=== PATIENT | male | born 1950 | race Caucasian/White ===

== ENCOUNTER 2018-03-09 00:30 | Inpatient (IN) | payer BC ==
[2018-03-09] MEDS ORDERED: GLUCAGON 1 MG KIT IVPUSH ONE (00:57)
[2018-03-09 01:00] VITALS: BMI 25.7
--- NOTE | 2018-03-09 01:01 | PDOC ---
Attending Attestation - Resident Resident Name: Reyes Staples - ED Attending Attestation I have performed the following: I have examined & evaluated the patient, The case was reviewed & discussed with the resident, I agree w/resident's findings & plan, Exceptions are as noted - HPI HPI: 03/09/18 02:48 67y M hx of barrets esophagus c/b strictures presents with food impaction, pt with prior episodes of food impactioni n the past requiring endoscopy. pt notes the past month he has been having frequent bouts of food impaction after eating steak. pt notes some mild mid chest pain where he feels the food is stock. denies any fever/chils, sob, n/v, diaphoresis. on exam: general: no distress ENT: protecting oral secretions abd: soft nontender suspect food impaction, protecting secretions, no distress will give glucoagon will consult GI preop labs - Physicial Exam PE: 03/15/18 08:05 see above - Medical Decision Making 03/15/18 08:05 see above Heart Score/ECG Review - ECG Impressions Comment:: 03/09/18 05:09 Twelve-lead EKG was performed and reviewed by me. There is normal sinus rhythm with a normal rate. Rate of 67 LBBB
[2018-03-09] MEDS ORDERED: ONDANSETRON 4 MG/2 ML VIAL IVPUSH ONE (01:09)
--- NOTE | 2018-03-09 01:09 | PDOC ---
History of Present Illness - General Chief Complaint: Choking Sensation Stated Complaint: TANNER'S ESOPHAGUS Time Seen by Provider: 03/09/18 00:46 History Source: Patient Exam Limitations: No Limitations - History of Present Illness Initial Comments: 03/09/18 01:08 Patient is a 67M with history of barrets esophagus, hemochromatosis, fatty liver , parkinson's disease here today with chest pain after eating steak. Patient reports drooling having to use a spit cup. Endorses a pain in his upper chest. Denies difficulty breathing, fevers, chills, vomiting. Denies abdominal pain, dysuria. Past History - Past Medical History Allergies/Adverse Reactions: Allergies Allergy/AdvReac Type Severity Reaction Status Date / Time No Known Allergies Allergy Verified 03/09/18 00:57 Home Medications: Ambulatory Orders Omeprazole [Prilosec] 20 mg PO DAILY 08/14/15 Oxycodone HCl 10 mg PO PRN PRN 08/14/15 Rivastigmine Tartrate [Exelon (Nf) -] 1 cap PO BID 08/14/15 Ropinirole HCl [Requip -] 1 mg PO HS 08/14/15 Ropinirole HCl [Requip -] 1 mg PO HS tablet 12/07/15 Anemia: No Asthma: No Cancer: No Cardiac Disorders: No CVA: No COPD: No CHF: No Dementia: No Diabetes: No GI Disorders: Yes (BARRETTS SYNDROME) Disorders: No HTN: No Hypercholesterolemia: No Liver Disease: No Seizures: No Thyroid Disease: No - Surgical History Abdominal Surgery: Yes (UMBILICAL HERNIA REPAIR) Appendectomy: No Cardiac Surgery: No Cholecystectomy: No Lung Surgery: No Neurologic Surgery: No Orthopedic Surgery: No (KNEE ARHTROSCOPY-UNSURE WHICH) - Suicide/Smoking/Psychosocial Hx Smoking History: Never smoked Have you smoked in the past 12 months: No Number of Cigarettes Smoked Daily: 20 Information on smoking cessation initiated: No 'Breaking Loose' booklet given: 12/02/15 Hx Alcohol Use: No Drug/Substance Use Hx: No Substance Use Type: Alcohol Hx Substance Use Treatment: No Review of Systems - Review of Systems Comments:: 03/09/18 01:11 GENERAL/CONSTITUTIONAL: No fever or chills. No weakness. HEAD, EYES, EARS, NOSE AND THROAT: No change in vision. No sore throat. CARDIOVASCULAR: No chest pain or shortness of breath RESPIRATORY: No cough, wheezing, or hemoptysis. GASTROINTESTINAL: +nausea, no vomiting, diarrhea or constipation. GENITOURINARY: No dysuria, frequency, or change in urination. MUSCULOSKELETAL: No joint or muscle swelling or pain. No neck or back pain. SKIN: No rash NEUROLOGIC: No headache, vertigo, loss of consciousness, or change in strength/ sensation. ALLERGIC/IMMUNOLOGIC: No hives or skin allergy. *Physical Exam - Vital Signs Last Vital Signs Temp Pulse Resp BP Pulse Ox 97.6 F 93 H 18 170/88 94 L 03/09/18 00:57 03/09/18 00:57 03/09/18 00:57 03/09/18 00:57 03/09/18 00:57 - Physical Exam Comments: 03/09/18 01:14 GENERAL: Awake, alert, and fully oriented, spit cup in hand HEAD: No signs of trauma, normocephalic, atraumatic EYES: PERRLA, EOMI, sclera anicteric, conjunctiva clear ENT: Auricles normal inspection, hearing grossly normal, nares patent, oropharynx clear without exudates. Moist mucosa NECK: Normal ROM, supple, no lymphadenopathy, JVD, or masses LUNGS: No distress, speaks full sentences, clear to auscultation bilaterally HEART: Regular rate and rhythm, normal S1 and S2, no murmurs, rubs or gallops, peripheral pulses normal and equal bilaterally. ABDOMEN: Soft, nontender, normoactive bowel sounds. No guarding, no rebound. No masses EXTREMITIES: Normal inspection, Normal range of motion, no edema. No clubbing or cyanosis. NEUROLOGICAL: Cranial nerves II through XII grossly intact. Normal speech, normal gait, no focal sensorimotor deficits SKIN: Warm, Dry, normal turgor, no rashes or lesions noted. Moderate Sedation - Procedure Monitoring Vital Signs: Procedure Monitoring Vital Signs Temperature 97.6 F 03/09/18 00:57 Pulse Rate 93 H 03/09/18 00:57 Respiratory Rate 18 03/09/18 00:57 Blood Pressure 170/88 03/09/18 00:57 O2 Sat by Pulse Oximetry (%) 94 L 03/09/18 00:57 ED Treatment Course - LABORATORY CBC & Chemistry Diagram: 03/09/18 01:00 03/09/18 01:00 - RADIOLOGY Radiology Studies Ordered: Category Date Time Status CHEST X-RAY PORTABLE* [RAD] Stat Radiology 03/09/18 00:57 Ordered Medical Decision Making - Medical Decision Making 03/09/18 01:15 Patient is 67M here today with food bolus. Vitals normal and stable. Protecting airway. Pre-op labs drawn. Given 1mg of glucagon. Patient's local GI is [facility] , paged. 03/09/18 02:41 CBC, CMP reassuring. Glucagon not effective. GI paged 2 time. Patient dry heaving. Complaining of "heartburn". 03/09/18 03:59 D/w Dr Buckner, will see in morning. 03/09/18 04:16 EKG shows LBBB, NSR. Similar to prior EKG. Sgarbossa neg. *DC/Admit/Observation/Transfer Diagnosis at time of Disposition: Food impaction of esophagus - Discharge Dispostion Condition at time of disposition: Stable Decision to Admit order: Yes - Referrals - Patient Instructions - Post Discharge Activity
[2018-03-09] MEDS ORDERED: GlUCAGON HUMAN RECOMBINANT 1 MG/VIAL ONE (01:10)
[2018-03-09] MEDS ORDERED: ONDANSETRON 4 MG/2 ML VIAL ONE (01:11)
[2018-03-09 01:18] LABS: BASO % 1.2 % (0-2.0); EOS % 1.6 % (0-4.5); HEMATOCRIT 45.4 % (35.4-49); LYMPH % 21.5 % (8-40); MCH 34.1 pg (25.7-33.7); MCHC 35.2 g/dl (32.0-35.9); MEAN CELL VOLUME 96.9 fl (80-96); MONO % 11.2 % (3.8-10.2); NEUT % 64.5 % (42.8-82.8); PLATELET COUNT 274 K/MM3 (134-434); RBC 4.68 M/mm3 (4.00-5.60); RDW 13.2 % (11.9-15.9); WHITE BLOOD COUNT 6.5 K/mm3 (4.0-10.0)
[2018-03-09 01:33] LABS: INR 1.13 (0.83-1.09); PROTHROMBIN TIME (PATIENT) 13.3 SEC (9.7-13.0)
[2018-03-09 02:03] LABS: ALBUMIN 3.8 g/dl (3.4-5.0); ALK PHOS 124 U/L (45-117); ANION GAP 10 MMOL/L (8-16); BILIRUBIN,TOTAL 1.1 mg/dL (0.2-1); BLOOD UREA NITROGEN 8 mg/dL (7-18); CALCIUM 8.9 mg/dL (8.5-10.1); CHLORIDE 101 mmol/L (98-107); CO2 29 mmol/L (21-32); CREATININE 0.6 mg/dL (0.55-1.3); GLUCOSE,RANDOM 91 mg/dL (74-106); POTASSIUM 4.2 mmol/L (3.5-5.1); SGOT/AST 70 U/L (15-37); SGPT/ALT 46 U/L (13-61); SODIUM 140 mmol/L (136-145); TOT PROT 8.1 g/dl (6.4-8.2)
[2018-03-09] MEDS ORDERED: FAMOTIDINE 20 MG/50 ML IVPB 20 MG/50 ML MG IVPB ONE ×2 (02:44→02:57)
--- NOTE | 2018-03-09 04:33 | HP ---
Admitting History and Physical - Primary Care Physician PCP: Nikolas Donald - Admission Chief Complaint: Difficulty Swallowing, Burning Chest Pain History of Present Illness: This is a 67 y/o man with a PMHx of Barretts Espohagus, Hemochromotosis, Fatty Liver, Parkinson's Disease. Who presents to the ED with burning chest pain and difficulty swallowing after eating steak. Patient reports eating steak without chewing. He reports attempting to drink liquids and not being able to. He states " It feels like something is stuck in my chest. Patient denies SOB, palpitations , AP, constipation, diarrhea, dysuria. History Source: Patient Limitations to Obtaining History: No Limitations - Past Medical History Pulmonary: Yes: COPD. No: O2 Dependent Gastrointestinal: Yes: GERD, Other (barretts). No: Ascites, Cancer Hepatobiliary: Yes: Cirrhosis Heme/Onc: Yes: Hemochromatosis. No: Anemia Psych: Yes: Addictions (20 mg of oxycodone daily for back pain) Musculoskeletal: Yes: Chronic low back pain - Smoking History Smoking history: Never smoked Have you smoked in the past 12 months: No Aproximately how many cigarettes per day: 20 - Alcohol/Substance Use Hx Alcohol Use: No - Social History History of Recent Travel: No Home Medications - Allergies Allergies/Adverse Reactions: Allergies Allergy/AdvReac Type Severity Reaction Status Date / Time No Known Allergies Allergy Verified 03/09/18 00:57 - Home Medications Home Medications: Ambulatory Orders Omeprazole [Prilosec] 20 mg PO DAILY 08/14/15 Oxycodone HCl 10 mg PO PRN PRN 08/14/15 Rivastigmine Tartrate [Exelon (Nf) -] 1 cap PO BID 08/14/15 Ropinirole HCl [Requip -] 1 mg PO HS 08/14/15 Family Disease History - Family Disease History Family History: Unable to Obtain Review of Systems - Review of Systems Eyes: reports: No Symptoms HENT: reports: Other (excessive drooling) Cardiovascular: reports: No Symptoms Respiratory: reports: No Symptoms Genitourinary: reports: No Symptoms Breasts: reports: No Symptoms Reported Musculoskeletal: reports: No Symptoms Integumentary: reports: No Symptoms Neurological: reports: No Symptoms Endocrine: reports: No Symptoms Hematology/Lymphatic: reports: No Symptoms Psychiatric: reports: No Symptoms Physical Examination Vital Signs: Vital Signs Temperature 97.6 F 03/09/18 00:57 Pulse Rate 93 H 03/09/18 00:57 Respiratory Rate 18 03/09/18 00:57 Blood Pressure 170/88 03/09/18 00:57 O2 Sat by Pulse Oximetry (%) 94 L 03/09/18 00:57 Constitutional: Yes: Well Nourished, Mild Distress, Obese Eyes: Yes: WNL, Conjunctiva Clear, EOM Intact, PERRL HENT: Yes: WNL, Atraumatic, Normocephalic Neck: Yes: WNL, Supple, Trachea Midline. No: Tenderness Cardiovascular: Yes: WNL, Regular Rate and Rhythm, S1, S2 Respiratory: Yes: Cough, Rhonchi Gastrointestinal: Yes: WNL, Normal Bowel Sounds, Soft, Abdomen, Obese Renal/: Yes: WNL Breast(s): Yes: WNL Musculoskeletal: Yes: WNL Extremities: Yes: WNL Edema: Yes Peripheral Pulses WNL: Yes Integumentary: Yes: WNL Neurological: Yes: WNL, Alert, Oriented ...Motor Strength: WNL Psychiatric: Yes: WNL, Alert, Oriented Labs: CBC, BMP 03/09/18 01:00 03/09/18 01:00 Imaging - Results Chest X-ray: Image Reviewed X-ray: Pending EKG: Image Reviewed Problem List - Problems (1) Food impaction of esophagus Assessment/Plan: Likely secondary to eating steak Glucagon given in ED- no relief Soft tissue Neck- pending Appreciate GI consult- aware will see in am HOB 90 degrees NPO IVF Aspiration Precautions Monitor vitals Code(s): T18.128A - FOOD IN ESOPHAGUS CAUSING OTHER INJURY, INITIAL ENCOUNTER (2) Tanner esophagus Assessment/Plan: Will continue to monitor and treat with interventions Aspiration Precautions Code(s): K22.70 - TANNER'S ESOPHAGUS WITHOUT DYSPLASIA (3) Chest pain due to GERD Assessment/Plan: Likely secondary to eating steak Trop I neg Serial Enzymes Consider Cardiology consult if condition worsens EKG- LBBB, no change from prior study PPI Monitor vitals Code(s): R07.9 - CHEST PAIN, UNSPECIFIED; K21.9 - GASTRO-ESOPHAGEAL REFLUX DISEASE WITHOUT ESOPHAGITIS (4) COPD (chronic obstructive pulmonary disease) Assessment/Plan: Stable No acute flare Continue home meds Code(s): J44.9 - CHRONIC OBSTRUCTIVE PULMONARY DISEASE, UNSPECIFIED (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 Admitted for Food Impaction of the Esophagus, Chest Pain for further evaluation of their emergent condition Plan: See Problem List FEN- D51/2NS@75ml/hr, Replete lytes prn, NPO DVT ppx- OOB, SCDs, Heparin SQ Code Status: Full Code Dispo: Requires Inpatient Care Visit type - Emergency Visit Emergency Visit: Yes ED Registration Date: 03/09/18 Care time: The patient presented to the Emergency Department on the above date and was hospitalized for further evaluation of their emergent condition. - New Patient This patient is new to me today: Yes Date on this admission: 03/09/18 - Critical Care Critical Care patient: No
[2018-03-09] MEDS ORDERED: DEXTROSE 5%-0.45% SALINE 1,000 ML IV SCH (04:45)
--- NOTE | 2018-03-09 09:41 | CON.GI ---
Consult Consult Specialty:: GI Referred by:: Dr. Lau Reason for Consultation:: Esophageal Food Impaction - History of Present Illness Chief Complaint: I ate steak and it got stuck History of Present Illness: 67M admitted to [facility] for evaluation of dysphagia. He ate steak last night and felt pain, was unable to maintain his secretions. He took his own medications this morning per his nurse. He states that they went down but it still hurts. He has a history of jackson's esophagus. he is a poor historian so i called his . He is followed by Dr. Angel Cornejo at [facility]. By description he has undergone Barrx ablation of batrrett's, has needed esophageal dilations in the past and has had food impactions in the past. His last treatment was 2 years ago per his . Mr. Bernardo explained that it was 7 months ago. He driinks upwards of 10 beers per day and vodka as well. he has a history of hemochromatosis and fatty liver. He does not recall ever having undergone banding or varcies nor does his . 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 No: O2 Dependent Gastrointestinal: Yes: GERD, Other (jackson's esophagus). 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 Place of : [facility] History of Recent Travel: No Home Medications - Allergies Allergies/Adverse Reactions: Allergies Allergy/AdvReac Type Severity Reaction Status Date / Time No Known Allergies Allergy Verified 03/09/18 00:57 - Home Medications Home Medications: Ambulatory Orders Omeprazole [Prilosec] 20 mg PO DAILY 08/14/15 Oxycodone HCl 10 mg PO PRN PRN 08/14/15 Rivastigmine Tartrate [Exelon (Nf) -] 1 cap PO BID 08/14/15 Ropinirole HCl [Requip -] 1 mg PO HS 08/14/15 Family Disease History - Family Disease History Family Disease History: Other: Father (: Lung cancer) Review of Systems - Review of Systems Constitutional: denies: Chills Cardiovascular: denies: Chest Pain Respiratory: denies: SOB Gastrointestinal: reports: Dysphagia. denies: Abdominal Pain Physical Exam-GI Vital Signs: Vital Signs Temperature 97.6 F 03/09/18 10:00 Pulse Rate 82 03/09/18 10:00 Respiratory Rate 18 03/09/18 10:00 Blood Pressure 175/94 03/09/18 10:00 O2 Sat by Pulse Oximetry (%) 95 on RA 03/09/18 10:00 Constitutional: Yes: Calm Eyes: No: Sclera Icterus Labs: CBC, BMP 03/09/18 01:00 03/09/18 01:00 INR, PTT INR 1.13 (0.83-1.09) H 03/09/18 01:00 Problem List - Problems (1) Food impaction of esophagus Assessment/Plan: Recurrent by description Discussed upper endoscopy for further evaluation with Mr. Bernardo +/- banding of varices, +/- dilation. We discussed that he will likely require intubation for the procedure. We discussed potential risks of the procedure like but not limited to bleeding, perforation requiring surgery to repainr, infection and sedation medication effects all of which could be potentially life threatening. I explained this to his via telephone. He has agreed to the procedure. Type and cross NPO IV hydration BP management per primary team Will need f/u with primary muffler hand Dr. Tye Cornejo for follow-up of jackson's, fatty liver upon discharge Discussed the need for alcohol abstinence. Code(s): T18.128A - FOOD IN ESOPHAGUS CAUSING OTHER INJURY, INITIAL ENCOUNTER
--- NOTE | 2018-03-09 11:54 | EKG ---
Test Reason : Blood Pressure : / mmHG Vent. Rate : 067 BPM Atrial Rate : 067 BPM P-R Int : 142 ms QRS Dur : 142 ms QT Int : 466 ms P-R-T Axes : 048 -20 057 degrees QTc Int : 492 ms NORMAL SINUS RHYTHM WITH SINUS ARRHYTHMIA LEFT BUNDLE BRANCH BLOCK ABNORMAL ECG WHEN COMPARED WITH ECG OF 02-DEC-2015 12:34, PREMATURE ATRIAL COMPLEXES ARE NO LONGER PRESENT T WAVE INVERSION NO LONGER EVIDENT IN LATERAL LEADS Confirmed by CHRISTI QUIROZ, FRANC ([id number]) on 03/09/2018 11:53:55 AM Referred By: Confirmed By:FRANC BARRAZA MD
--- NOTE | 2018-03-09 12:07 | PN ---
Progress Note (short form) - Note Progress Note: EGD complete. Procedure report added to physical chart and to also be scanned into [facility]. Problem List - Problems (1) Food impaction of esophagus Code(s): T18.128A - FOOD IN ESOPHAGUS CAUSING OTHER INJURY, INITIAL ENCOUNTER
--- NOTE | 2018-03-09 17:22 | PN ---
Progress Note, Physician Chief Complaint: s/p EGD Dysphagia History of Present Illness: Previous notes and events reviewed awake and alert NAD no c/o chest pain or SOB - Current Medication List Current Medications: Active Medications Dextrose/Sodium Chloride (D5-1/2ns -) 1,000 mls @ 75 mls/hr IV ASDIR [facility] Last Admin: 03/09/18 04:53 Dose: 75 mls/hr Pantoprazole Sodium (Protonix -) 40 mg PO DAILY [facility] - Objective Vital Signs: Vital Signs Temperature 97.8 F 03/09/18 16:14 Pulse Rate 69 03/09/18 16:14 Respiratory Rate 18 03/09/18 16:14 Blood Pressure 160/94 03/09/18 16:14 O2 Sat by Pulse Oximetry (%) 98 03/09/18 15:42 Constitutional: Yes: Well Nourished, No Distress, Calm Eyes: Yes: Conjunctiva Clear Neck: Yes: Supple Cardiovascular: Yes: Regular Rate and Rhythm Respiratory: Yes: Regular, CTA Bilaterally Gastrointestinal: Yes: Normal Bowel Sounds, Soft Musculoskeletal: Yes: WNL Extremities: Yes: WNL Edema: No Integumentary: Yes: WNL Neurological: Yes: Alert, Oriented Psychiatric: Yes: Alert, Oriented Labs: CBC, BMP 03/09/18 01:00 03/09/18 01:00 INR, PTT INR 1.13 (0.83-1.09) H 03/09/18 01:00 <Zohra Pérez - Last Filed: 03/09/18 17:26> - Current Medication List Current Medications: Active Medications Ketorolac Tromethamine (Toradol Injection -) 30 mg IVPUSH Q6H PRN PRN Reason: PAIN LEVEL 1-5 Stop: 03/14/18 17:59 Last Admin: 03/10/18 05:44 Dose: 30 mg Non-Formulary Medication (Patient's Own Med) 1 each PO BID [facility] Pantoprazole Sodium (Protonix -) 40 mg PO DAILY [facility] Last Admin: 03/10/18 08:28 Dose: Not Given Ropinirole HCl (Requip -) 1 mg PO HS [facility] Last Admin: 03/09/18 22:34 Dose: 1 mg - Objective Vital Signs: Vital Signs Temperature 98.3 F 03/10/18 05:55 Pulse Rate 60 03/10/18 05:55 Respiratory Rate 20 03/10/18 05:55 Blood Pressure 157/93 03/10/18 05:55 O2 Sat by Pulse Oximetry (%) 98 03/09/18 21:00 Labs: INR, PTT INR 1.13 (0.83-1.09) H 03/09/18 01:00 <Stephani Lau - Last Filed: 03/10/18 08:39> Problem List - Problems (1) Tanner esophagus Code(s): K22.70 - TANNER'S ESOPHAGUS WITHOUT DYSPLASIA (2) Chest pain due to GERD Code(s): R07.9 - CHEST PAIN, UNSPECIFIED; K21.9 - GASTRO-ESOPHAGEAL REFLUX DISEASE WITHOUT ESOPHAGITIS (3) Food impaction of esophagus Code(s): T18.128A - FOOD IN ESOPHAGUS CAUSING OTHER INJURY, INITIAL ENCOUNTER (4) COPD (chronic obstructive pulmonary disease) Code(s): J44.9 - CHRONIC OBSTRUCTIVE PULMONARY DISEASE, UNSPECIFIED (5) Parkinson disease Code(s): G20 - PARKINSON'S DISEASE <Zohra Pérez - Last Filed: 03/09/18 17:26> Assessment/Plan -GI on board, reccomendation appreciated -Full liquid diet -cont with IVF for hydration -pantoprazole daily -keep SpO2 >90% -dvt ppx-SCD both legs -I&O -cont with exelon and requip <Zohra Pérez - Last Filed: 03/09/18 17:26> PATIENT SEEN AND EXAMINED I AGREE WITH ABOVE NOTE <Stephani Lau - Last Filed: 03/10/18 08:39>
[2018-03-09] MEDS: KETOROLAC TROMETHAMINE 30 MG/1 ML VIAL IVPUSH PRN (19:47)
[2018-03-09] MEDS ORDERED: rOPINIRole HCL 1 MG TABLET (FP) PO SCH (22:00)
[2018-03-10] MEDS: KETOROLAC TROMETHAMINE 30 MG/1 ML VIAL IVPUSH PRN (05:44)
[2018-03-10 05:57] VITALS: TEMP 98.3
[2018-03-10] MEDS: PANTOPRAZOLE 40 MG TABLET (FP) PO SCH ×2 (08:28→09:29)
[2018-03-10 08:36] LABS: HEMATOCRIT 43.2 % (35.4-49); HEMOGLOBIN 15.3 GM/dL (11.7-16.9); LYMPH % 23.2 % (8-40); MCH 34.6 pg (25.7-33.7); MCHC 35.4 g/dl (32.0-35.9); MEAN CELL VOLUME 97.7 fl (80-96); MEAN PLT VOLUME 7.6 fl (7.5-11.1); MONO % 8.2 % (3.8-10.2); NEUT % 67.5 % (42.8-82.8); PLATELET COUNT 201 K/MM3 (134-434); RBC 4.42 M/mm3 (4.00-5.60); WHITE BLOOD COUNT 6.6 K/mm3 (4.0-10.0)
[2018-03-10 08:37] LABS: BASO % 0.5 % (0-2.0); EOS % 0.6 % (0-4.5)
[2018-03-10 09:20] LABS: ANION GAP 7 MMOL/L (8-16); BLOOD UREA NITROGEN 16 mg/dL (7-18); CALCIUM 9.1 mg/dL (8.5-10.1); CHLORIDE 98 mmol/L (98-107); CO2 28 mmol/L (21-32); CREATININE 0.7 mg/dL (0.55-1.3); GLUCOSE,RANDOM 153 mg/dL (74-106); POTASSIUM 3.8 mmol/L (3.5-5.1); SODIUM 134 mmol/L (136-145)
--- NOTE | 2018-03-10 11:15 | PN ---
GI Progress Note Subjective: No acute events Tolerating full liquids states feeling well - Objective Vital Signs: Vital Signs Temperature 98.3 F 03/10/18 05:55 Pulse Rate 60 03/10/18 05:55 Respiratory Rate 20 03/10/18 05:55 Blood Pressure 157/93 03/10/18 05:55 O2 Sat by Pulse Oximetry (%) 98 03/09/18 21:00 Constitutional: Calm Eyes: No: Sclera Icterus Cardiovascular: Yes: Regular Rate and Rhythm Respiratory: Yes: CTA Bilaterally Gastrointestinal Inspection: No: Distention ...Auscultate: Yes: Normoactive Bowel Sounds ...Palpate: No: Tenderness Edema: No (No LE edema) Neurological: Yes: Alert Labs: CBC, BMP 03/10/18 07:45 03/10/18 07:45 INR, PTT INR 1.13 (0.83-1.09) H 03/09/18 01:00 Problem List - Problems (1) Food impaction of esophagus Assessment/Plan: S/P meat disimpaction Advise: Protonix 40mg once daily Chopped dysphagia diet Complete alcohol abstinence. Will likely need to be in a program. Discussed with patient Avoidance of bulk meats and breads with slow, well chewed meals Follow-up with Dr. Cornejo as outpatient for further evaluation of Garza's. I spoke with Dr. Cornejo last night. he stated that he would be reaching out to Mr. Bernardo regarding follow-up and I advised the patient to make appointment as well. Code(s): T18.128A - FOOD IN ESOPHAGUS CAUSING OTHER INJURY, INITIAL ENCOUNTER
[2018-03-10 11:59] VITALS: BP 157/89; PULSE 91
--- NOTE | 2018-03-10 12:44 | DS ---
Physical Examination Vital Signs: Vital Signs Temperature 98.3 F 03/10/18 05:55 Pulse Rate 91 H 03/10/18 11:00 Respiratory Rate 20 03/10/18 11:00 Blood Pressure 157/89 03/10/18 11:00 O2 Sat by Pulse Oximetry (%) 98 03/10/18 09:00 Labs: CBC, BMP 03/10/18 07:45 03/10/18 07:45 Discharge Summary Reason For Visit: FOOD IMPACTION OF ESOPHAGUS Current Active Problems Garza esophagus (Acute) Chest pain due to GERD (Acute) Food impaction of esophagus (Acute) Condition: Stable - Instructions Referrals: Nikolas Donald MD [Primary Care Provider] - 2 Weeks Disposition: HOME - Home Medications Comprehensive Discharge Medication List: Ambulatory Orders Oxycodone HCl 10 mg PO PRN PRN 08/14/15 Rivastigmine Tartrate [Exelon (Nf) -] 1 cap PO BID 08/14/15 Ropinirole HCl [Requip -] 1 mg PO HS 08/14/15 Pantoprazole Sodium [Protonix -] 40 mg PO DAILY #30 tablet.ec 03/10/18 Ropinirole HCl [Requip -] 1 mg PO HS tablet 03/10/18
== END 2018-03-10 13:32 | disposition home or self-care (01) | DRG 395 ==
LOC: JER 00:30 → JERBED 04:02 → J6S 15:50
PROVIDERS: ADMIT Internal Medicine; ATTEND Family Medicine
PROC: 0DC58ZZ Extirpation of Matter from Esophagus, Via Natural or Artificial Opening Endoscopic (ICD-10-PCS; principal; 2018-03-09 11:00)
DX: T18.128A Food in esophagus causing other injury, initial encounter (principal); X58.XXXA Exposure to other specified factors, initial encounter; Y93.9 Activity, unspecified; Y92.89 Other specified places as the place of occurrence of the external cause; Y99.9 Unspecified external cause status; R13.10 Dysphagia, unspecified; K21.9 Gastro-esophageal reflux disease without esophagitis; K76.0 Fatty (change of) liver, not elsewhere classified; G20 Parkinson's disease; K22.70 Barrett's esophagus without dysplasia; R07.9 Chest pain, unspecified; F17.210 Nicotine dependence, cigarettes, uncomplicated
CPT/HCPCS: 36415; 70360-TC-FY; 71045-TC-FY; 80048; 80053; 82550; 83735; 84484; 85025; 85610; 86850; 86900; 86901; 93005; 93010; 99285-25

== ENCOUNTER 2018-05-23 07:35 | Day surgery (SDC) | payer BC, OTHER ==
[2018-05-21 14:21] VITALS: BMI 26.0
[2018-05-23] MEDS: PHENYLEPHRINE 2.5% OPHTH SOLN 15 ML BOTTLE ONE ×3 (08:05→08:15)
[2018-05-23] MEDS: TROPICAMIDE 1% OPHTH SOLN 15 ML BOTTLE ONE ×3 (08:05→08:15)
[2018-05-23] MEDS: CYCLOPENTOLATE 2% OPHTH SOLN 2 ML BOTTLE ONE ×3 (08:05→08:15)
[2018-05-23] MEDS: CIPROFLOXACIN 0.3% EYE DROPS 5 ML BOTTLE ONE ×3 (08:05→08:15)
[2018-05-23] MEDS ORDERED: LIDOCAINE 1% P/F 10 MG/ML VIAL ONE (09:05)
[2018-05-23] MEDS ORDERED: BSS (NA/CA/MG/K) BALANCED SALT SOLUTION OPHTH SOLN 15 ML BOTTLE ONE (09:05)
[2018-05-23] MEDS ORDERED: CARBACHOL 0.01% INTRA-OCULAR 1.5 ML VIAL ONE (09:05)
[2018-05-23] MEDS ORDERED: MIDAZOLAM HCL 2 MG/2 ML SINGLE DOSE VIAL ONE (09:06)
[2018-05-23] MEDS ORDERED: ACETAMINOPHEN 325 MG TABLET (FP) PO PRN (09:43)
[2018-05-23] MEDS ORDERED: ONDANSETRON 4 MG/2 ML VIAL IVPUSH PRN (09:43)
[2018-05-23 09:45] VITALS: TEMP 97.4
[2018-05-23] MEDS ORDERED: LACTATED RINGERS SOLUTION 1,000 ML IV SCH (09:45)
--- NOTE | 2018-05-23 09:49 | OP ---
DATE OF OPERATION: 05/23/2018 OPERATIVE PROCEDURE: Lens Phacoemulsification with Posterior Chamber Intraocular Lens Placement Right Eye PREOPERATIVE DIAGNOSIS: Visually Significant Cataract of Right Eye POSTOPERATIVE DIAGNOSIS: Visually Significant Cataract of Right Eye SURGEON: Ye Gil M.D. ANESTHESIA: MAC PROCEDURE: The patient was brought to the operating room and placed under monitored anesthesia care by Anesthesia. A drop of Tetracaine was then placed over the right eye. The patient was then prepped and draped in the usual sterile manner. A speculum was then placed over the right eye. The eye was then well irrigated with copious amounts of BSS (balanced salt solution). The operating microscope was then moved into position. A paracentesis was performed using a 15 degree blade. At this point 0.5 mL of 1% preservative-free lidocaine was injected into the anterior chamber. Amvisc plus was then injected into the anterior chamber. A clear corneal incision was then formed using a 2.2 mm keratome. A capsulorrhexis was then performed in a continuous circular fashion beginning with a cystotome, completed with an Utratas forceps. Hydrodissection was then performed using BSS on a cannula. The phaco probe was then introduced through the corneal wound and the cataract was removed using the phaco chop technique. Approximately 3 seconds of absolute phaco time was used. The remaining cortex was then removed using irrigation and aspiration with an I/A probe. The capsule was then filled with regular Amvisc and the capsule was noted to be intact. A previously selected foldable posterior chamber intraocular lens was then injected into the capsule through the corneal wound using a lens injector. It was then dialed into position using a Sinskey hook. The Amvisc was then removed using irrigation and aspiration. Miostat was then injected through the paracentesis to constrict the pupil. The paracentesis and corneal wound were then hydrated and noted to be water tight. A drop of Maxitrol was then placed over the eye. The speculum was removed and clear shield was taped over the eye. The patient tolerated the procedure well and there were no surgical complications. The patient was asked to follow up in my office the next day. YE GIL M.D. LISETH/[id number]
[2018-05-23 11:43] VITALS: BP 120/58; PULSE 72
== END 2018-05-23 10:15 | disposition home or self-care (01) ==
LOC: FASU 07:35
PROVIDERS: ATTEND Ophthalmology
PROC: 08RJ3JZ Replacement of Right Lens with Synthetic Substitute, Percutaneous Approach (ICD-10-PCS; principal; 2018-05-23 09:21)
DX: H26.8 Other specified cataract (principal)

== ENCOUNTER 2018-06-12 05:52 | Inpatient (IN) | payer BC, OTHER ==
[2018-05-28 12:02] VITALS: BMI 28.7
[2018-06-12] MEDS ORDERED: CEFAZOLIN 2 GM/D5W 2 GM/50 ML ML IVPB ONE (06:20)
[2018-06-12] MEDS ORDERED: oxyCODONE HCL 10 MG SUSTAINED ACTING TABLET PO ONE (06:20)
[2018-06-12] MEDS ORDERED: GABAPENTIN 300 MG CAPSULE (FP) PO ONE (06:20)
[2018-06-12] MEDS ORDERED: TRANEXAMIC ACID 1000 MG/10 ML VIAL IVPUSH ONE (06:20)
[2018-06-12] MEDS ORDERED: CELECOXIB 200 MG CAPSULE PO ONE (06:20)
[2018-06-12] MEDS ORDERED: MIDAZOLAM HCL 2 MG/2 ML SINGLE DOSE VIAL ONE (07:04)
[2018-06-12] MEDS ORDERED: BUPIVACAINE LIPOSOME/PF (EXPAREL) 266 MG/20 ML VIAL ONE (07:04)
[2018-06-12] MEDS ORDERED: SODIUM CHLORIDE 0.9% P/F 10 ML VIAL IJ ONE (07:05)
[2018-06-12] MEDS ORDERED: ceFAZolin SODIUM 1 GM VIAL ONE ×2 (07:22→08:14)
[2018-06-12] MEDS ORDERED: VANCOMYCIN 1,000 MG VIAL (RESTRICTED TO ID ONLY) ONE (07:22)
[2018-06-12] MEDS ORDERED: ONDANSETRON 4 MG/2 ML VIAL IVPUSH PRN (07:51)
[2018-06-12] MEDS ORDERED: MAG HYDROX/AL HYDROX/SIMETH 30 ML UNIT-DOSE CUP PO PRN (07:51)
[2018-06-12] MEDS ORDERED: MAGNESIUM HYDROX 2400MG/30ML ORAL SUSPENSION 30 ML CUP PO PRN (07:51)
--- NOTE | 2018-06-12 07:53 | HP ---
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 No: O2 Dependent Gastrointestinal: Yes: GERD, Other (jackson's esophagus). No: Ascites, Cancer Hepatobiliary: Yes: Cirrhosis Heme/Onc: Yes: Hemochromatosis Musculoskeletal: Yes: Chronic low back pain - Current Medications Current Medications: Home Medications Medication Instructions Recorded Oxycodone HCl 10 mg PO PRN PRN 08/14/15 Rivastigmine Tartrate [Exelon (Nf) 1 cap PO BID 08/14/15 -] Omeprazole 20 mg PO DAILY 05/21/18 Ropinirole HCl [Requip -] 1 mg PO BID 05/28/18 Satellite Physical Exam - Physical Examination Vital Signs: Vital Signs Period Temp Pulse Resp BP Sys/Cameron Pulse Ox Last 24 Hr 98.8 F 72 18 130/68 General Appearance: Well Nourished, Well Developed, Alert & Oriented x3 ENT: Clear Lung: Normal air movement Heart: Regular rate & rhythm Extremities: Other (right knee- + swellng, + ttp, decr rom, nvi xrays show grade 4 tricompartmental djd) Neurological: Intact, Alert, Oriented Satellite Impression/Plan - Impression/Plan Impression: right knee djd Operative Procedure: right beata tkr Date to be Performed: 06/12/18
[2018-06-12] MEDS ORDERED: GABAPENTIN 300 MG CAPSULE (FP) ONE (07:57)
[2018-06-12] MEDS ORDERED: oxyCODONE HCL 10 MG SUSTAINED ACTING TABLET ONE (07:57)
[2018-06-12] MEDS ORDERED: CELECOXIB 200 MG CAPSULE ONE (07:57)
[2018-06-12] MEDS ORDERED: LACTATED RINGERS SOLUTION 1,000 ML IV SCH (08:00)
[2018-06-12] MEDS ORDERED: SUCCINYLCHOLINE CHLORIDE 200 MG/10 ML VIAL ONE (08:03)
[2018-06-12] MEDS ORDERED: TRANEXAMIC ACID 1000 MG/10 ML VIAL ONE (08:14)
[2018-06-12] MEDS ORDERED: PROPOFOL 20 ML ONE (08:16)
--- NOTE | 2018-06-12 09:46 | OP ---
Operative Note - Note: Operative Date: 06/12/18 (sim) Pre-Operative Diagnosis: right knee djd Operation: right beata tkr Post-Operative Diagnosis: Same as Pre-op Surgeon: Trev Back Communications Professor: Nick Dunlap Anesthesiologist/TIPPLE TENDER: Shan Barahona Anesthesia: Spinal, Local Specimens Removed: bone fragments Estimated Blood Loss (mls): 200 Operative Report Dictated: Yes
[2018-06-12] MEDS ORDERED: RIVASTIGMINE TARTRATE 1.5 MG CAPSULE PO SCH (10:00)
[2018-06-12] MEDS ORDERED: SENNOSIDES/DOCUSATE COMBO (SENNA PLUS) TABLET (UD) PO SCH (10:00)
--- NOTE | 2018-06-12 10:20 | SPEC ---
DATE OF OPERATION: DATE OF DICTATION: 06/12/2018 ADDENDUM SURGEON: Marcos Butler MD MENTAL RETARDATION AIDE: ROSSANA Grimaldo SECOND MEDICAL STENOGRAPHER: MD CECIL Guzman M.D. [id number]
[2018-06-12] MEDS ORDERED: oxyCODONE HCL 5 MG TABLET ONE (10:40)
[2018-06-12] MEDS ORDERED: ACETAMINOPHEN 325 MG TABLET (FP) ONE (10:40)
[2018-06-12] MEDS ORDERED: ACETAMINOPHEN 325 MG TABLET (FP) PO ONE (10:55)
[2018-06-12] MEDS ORDERED: oxyCODONE HCL 5 MG TABLET PO PRN (10:55)
[2018-06-12] MEDS ORDERED: DOCUSATE SODIUM 100 MG CAPSULE (FP) PO PRN (11:05)
--- NOTE | 2018-06-12 11:13 | SPEC ---
DATE OF OPERATION: 06/12/2018 PREOPERATIVE DIAGNOSIS: Degenerative joint disease, right knee. POSTOPERATIVE DIAGNOSIS: Degenerative joint disease, right knee. PROCEDURE: Right total knee replacement with robotic-assisted navigation (MAKOplasty). SURGICAL ATTENDING: Marcos Butler MD LITIGATION PARTNER: ROSSANA Grimaldo ANESTHESIA: Regional and spinal. CLOSURE: A Press-Fit Triathlon knee system with a 5 PF femur, a 6 tibia, a 9 polyethylene, a 35 patella; No. 1 Vicryl, fascia; 0 and 2-0 for subcutaneous; and 3-0 Monocryl subcuticular with skin glue for skin; 4-0 undyed Vicryl for pin sites. ESTIMATED BLOOD LOSS: About 100 mL. COMPLICATIONS: None. CONDITION: To recovery room in stable condition. DESCRIPTION OF OPERATIVE PROCEDURE: Patient was taken to the operating room on June 12, 2018. Regional and spinal anesthesia was administered by the anesthesiologist. IV Kefzol was administered prophylactically prior to the case as well as TXA. The right lower extremity was prepped and draped in the usual sterile fashion. The midline 10- to 12-cm longitudinal incision was made. Hemostasis was achieved with Bovie cautery. Sharp dissection was carried down to the extensor mechanism which was perform the procedure. Medial parapatellar arthrotomy was then performed, leaving a cuff of tissue for later closure. The patella was inverted and the knee was flexed up. The fat pad was excised. Subperiosteal dissection was done on the anteromedial proximal tibia until the knee was able to be brought forward. This was facilitated by taking the ACL, PCL and medial and lateral menisci. Checkpoints were placed in both the femur and in the tibia. Two parallel threaded pins were drilled superior to the knee joint through the already made incision from anterior to posterior just going through the anterior cortex but just engaging but not going through the posterior cortex. Two threaded pins were drilled through 2 small stab incisions in parallel fashion 1 handbreadth below the tibial tubercle through the anterior cortex of the tibia and engaging but not going through the posterior cortex. Both sets of pins were attached to navigation arrays for the PATITO system. The knee was then registered with the navigation system with center of rotation of the hip, medial and lateral malleoli and multiple sites both on the tibia and on the femur. Confirmation of excellent registration was confirmed by "popping the bubbles." At this time, the knee was thoroughly inspected to remove all osteophytes around the knee. The knee was then tensioned in varus/valgus at both full extension and at 90 degrees of flexion to ascertain our gaps. The virtual position of the components was optimized to ensure equal gaps throughout the range of motion. Once this was performed, the robot was brought into the field, was registered. The bone was cut as per the specifications on both the tibia and on the femur. The box cuts were then made as well. Excellent trial stability was obtained on the femur. The tibial baseplate was allowed to "find itself" and then was clipped into place. Confirmation of excellent external rotation of that component was confirmed by the navigation device as well.The patella was calibered for thickness and cut at the appropriate level. The appropriate lollipop was used to drill 3 holes in the patella and a trial asymmetric patellar button was applied. The knee was taken through a range of motion and found to have excellent stability from full extension to full flexion with excellent tracking of the patella. The trial components were then removed. The lug holes were drilled in the femur. The cementless keel was punched in the tibia. The real Press-Fit components were malleted into place, first with the tibia and then with the femur, and then the patella was crimped into place as well. The real polyethylene liner was then clipped into place. Range of motion, stability and tracking were as described earlier. The knee was thoroughly irrigated with copious amounts of irrigation. Vancomycin powder was placed inside the joint. The medial parapatellar arthrotomy was then closed using No. 1 Vicryl interrupted suture. Post closure of the arthrotomy, the knee was taken through a range of motion and found to have no undue tension on the repair. The subcutaneous was then pulse antibiotic irrigated, closed with 0 and 2-0 Vicryl and 3-0 Monocryl subcuticular with skin glue for the skin. Prior to closure, the checkpoints were removed as were the threaded pins. The tibial pin sites were closed with 4-0 undyed Vicryl. A sterile pressure Aquacel dressing was applied. No tourniquet was used during the case. The total blood loss was approximately 100 mL. No complication. Patient was transferred to recovery in stable condition. Emilia [id number]
[2018-06-12] MEDS: PANTOPRAZOLE 20 MG TABLET (FP) PO SCH (12:20)
[2018-06-12] MEDS: chlordiazePOXIDE HCL 25 MG CAPSULE PO SCH ×2 (12:20→20:42)
[2018-06-12] MEDS: MULTIVITAMINS (DAILY MVI) TABLET (FP) PO SCH (12:21)
[2018-06-12] MEDS ORDERED: PT OWN MED DRAWER 7, Y5N ONE ×2 (12:28→21:04)
[2018-06-12] MEDS: rOPINIRole HCL 1 MG TABLET (FP) PO SCH ×2 (12:31→21:11)
[2018-06-12] MEDS: oxyCODONE HCL 5 MG TABLET PO PRN ×3 (16:05→22:19)
[2018-06-12] MEDS ORDERED: chlordiazePOXIDE 5 MG CAPSULE ONE (16:14)
[2018-06-12] MEDS: CEFAZOLIN 2 GM/D5W 2 GM/50 ML ML IVPB SCH ×2 (16:22→19:00)
[2018-06-12] MEDS: chlordiazePOXIDE HCL 10 MG CAPSULE PO PRN (16:22)
[2018-06-12] MEDS: SENNOSIDES/DOCUSATE COMBO (SENNA PLUS) TABLET (UD) PO SCH (21:10)
[2018-06-12] MEDS: oxyCODONE HCL 10 MG SUSTAINED ACTING TABLET PO SCH (21:10)
[2018-06-12] MEDS: GABAPENTIN 300 MG CAPSULE (FP) PO SCH (21:11)
[2018-06-12] MEDS: RIVASTIGMINE TARTRATE 1.5 MG CAPSULE PO SCH (21:11)
[2018-06-13] MEDS ORDERED: CEFAZOLIN 2 GM/D5W 2 GM/50 ML ML IVPB SCH
[2018-06-13] MEDS: oxyCODONE HCL 5 MG TABLET PO PRN ×6 (01:41→21:10)
[2018-06-13] MEDS: chlordiazePOXIDE HCL 25 MG CAPSULE PO SCH (04:48)
[2018-06-13] MEDS: ACETAMINOPHEN 325 MG TABLET (FP) PO PRN ×2 (04:50→09:52)
[2018-06-13] MEDS ORDERED: chlordiazePOXIDE 5 MG CAPSULE ONE (06:54)
[2018-06-13] MEDS: chlordiazePOXIDE HCL 10 MG CAPSULE PO PRN (06:57)
--- NOTE | 2018-06-13 07:27 | PN ---
Progress Note (short form) - Note Progress Note: Ortho Pt seen and examined s/p right beata tkr pod #1 Selected Entries 06/13/18 03:00 Temperature 98.6 F Pulse Rate 81 Respiratory 19 Rate Blood Pressure 141/68 Laboratory Tests 06/13/18 06:50 WBC Pending Hgb Pending Hct Pending Plt Count Pending dressing c/d/i, calf soft, nt rom 0-30, nvi a/p PT dvt ppx pain control d/c home tomorrow if stable
[2018-06-13] MEDS: ASPIRIN 325 MG TABLET PO SCH (07:49)
[2018-06-13 08:30] LABS: HEMATOCRIT 36.9 % (35.4-49); HEMOGLOBIN 12.8 GM/dl (11.7-16.9); MCH 34.8 pg (25.7-33.7); MCHC 34.7 g/dl (32.0-35.9); MEAN CELL VOLUME 100.3 fl (80-96); MEAN PLT VOLUME 7.9 fl (7.5-11.1); PLATELET COUNT 128 K/MM3 (134-434); RBC 3.68 M/mm3 (4.00-5.60); WHITE BLOOD COUNT 5.5 K/mm3 (4.0-10.8)
[2018-06-13] MEDS ORDERED: PT OWN MED DRAWER 7, Y5N ONE ×2 (09:45→21:05)
[2018-06-13] MEDS: oxyCODONE HCL 10 MG SUSTAINED ACTING TABLET PO SCH ×2 (09:50→21:10)
[2018-06-13] MEDS: GABAPENTIN 300 MG CAPSULE (FP) PO SCH ×2 (09:50→21:09)
[2018-06-13] MEDS: PANTOPRAZOLE 20 MG TABLET (FP) PO SCH (09:51)
[2018-06-13] MEDS: SENNOSIDES/DOCUSATE COMBO (SENNA PLUS) TABLET (UD) PO SCH ×2 (09:51→22:38)
[2018-06-13] MEDS: rOPINIRole HCL 1 MG TABLET (FP) PO SCH ×2 (09:51→21:09)
[2018-06-13] MEDS: MULTIVITAMINS (DAILY MVI) TABLET (FP) PO SCH (09:52)
[2018-06-13] MEDS: RIVASTIGMINE TARTRATE 1.5 MG CAPSULE PO SCH ×2 (09:53→21:09)
[2018-06-13] MEDS: chlordiazePOXIDE 5 MG CAPSULE PO SCH ×2 (12:12→21:09)
--- NOTE | 2018-06-13 14:41 | PN ---
Progress Note (short form) - Note Progress Note: 67M POD1 s/p R TKR under spinal anesthetic with peripheral nerve blocks. Pt states that pain is moderately well controlled and reports no anesthetic complications. AVSS. Motor and sensory exam intact in bilateral lower extremities. Continue current regimen.
[2018-06-14] MEDS: chlordiazePOXIDE 5 MG CAPSULE PO SCH (05:01)
[2018-06-14] MEDS: oxyCODONE HCL 5 MG TABLET PO PRN ×3 (06:21→13:33)
[2018-06-14 08:27] LABS: HEMATOCRIT 36.5 % (35.4-49); HEMOGLOBIN 12.4 GM/dl (11.7-16.9); MCH 34.5 pg (25.7-33.7); MCHC 34.1 g/dl (32.0-35.9); MEAN CELL VOLUME 101.1 fl (80-96); MEAN PLT VOLUME 7.8 fl (7.5-11.1); PLATELET COUNT 133 K/MM3 (134-434); RBC 3.61 M/mm3 (4.00-5.60); RDW 12.5 % (11.9-15.9); WHITE BLOOD COUNT 6.6 K/mm3 (4.0-10.8)
--- NOTE | 2018-06-14 08:29 | PN ---
Progress Note (short form) - Note Progress Note: Ortho Pt seen and examined s/p right beata tkr pod #2 Selected Entries 06/14/18 06:19 Temperature 99.2 F Pulse Rate 92 H Respiratory 19 Rate Blood Pressure 151/53 L Laboratory Tests 06/13/18 06:50 WBC 5.5 Hgb 12.8 Hct 36.9 Plt Count 128 L dressing c/d/i, calf soft, nt rom 0-60, nvi a/p PT dvt ppx pain control d/c home today f/u in the office in 1 week
--- NOTE | 2018-06-14 08:30 | DS ---
Physical Examination Vital Signs: Vital Signs Temperature 99.2 F 06/14/18 06:19 Pulse Rate 92 H 06/14/18 06:19 Respiratory Rate 19 06/14/18 06:19 Blood Pressure 151/53 L 06/14/18 06:19 O2 Sat by Pulse Oximetry (%) 95 06/14/18 02:00 Discharge Summary Reason For Visit: OSTEOARTHRITIS Procedures: Principal: right tkr Hospital Course: admitted for elective right beata ukr, uneventful post-op, stable for d/c Condition: Good - Instructions Diet, Activity, Other Instructions: Post-op Instructions-Total Knee Replacement Call the office for a follow-up appointment in 1 week - [phone] Aspirin 325mg daily for 6 weeks. Pain medication was sent into your pharmacy. Apply Graduated Compression Stockings (TEDs) to both lower extremities- remove daily for hygiene ONLY Apply Sequential Compression Device (SCDs) to both Lower extremities remove for PT and hygiene ONLY Apply cold packs to affected area for 15 minutes every 2 hours. Physical Therapist will come to your home for the first 5 days. You will be set up with outpatient PT at your first post-operative visit. Patient may ambulate as tolerated-encourage self care (at least every 2-3 hours while awake) with walker or cane Maintain Aquacel (waterproof) dressing to operative wound (will be removed by surgeon at first office visit) Shower with Aquacel dressing in place-if Aquacel integrity compromised, remove and apply dry sterile dressing and notify Orthopedist. DO NOT SHOWER unless Orthopedists approves without Aquacel dressing CONTACT THE OFFICE FOR ANY CHANGE IN YOUR CONDITION (for example-fever greater than 102 degrees, excessive bleeding from operative site, purulent drainage, severe swelling or pain) GO TO THE EMERGENCY ROOM IF THERE IS A MEDICAL EMERGENCY Knee Precautions: * Keep a rolled towel under affected heel while in bed or chair (to keep knee in extension) * Keep affected leg elevated except during mealtimes * DO NOT PLACE PILLOW UNDER AFFECTED KNEE * If you have any questions, please do not hesitate to call the office - . Referrals: Trev Back MD [Staff Physician] - Disposition: VNS/HOME HEALTH CARE - Home Medications Comprehensive Discharge Medication List: Ambulatory Orders Rivastigmine Tartrate [Exelon (Nf) -] 1 cap PO BID 08/14/15 Omeprazole 20 mg PO DAILY 05/21/18 Ropinirole HCl [Requip -] 1 mg PO BID 05/28/18 Aspirin [ASA -] 325 mg PO DAILY@0800 tablet 06/12/18 Oxycodone HCl 10 mg PO QID PRN #40 tablet MDD 4 06/12/18
[2018-06-14] MEDS ORDERED: PT OWN MED DRAWER 7, Y5N ONE (10:13)
[2018-06-14] MEDS ORDERED: chlordiazePOXIDE 5 MG CAPSULE ONE (10:18)
[2018-06-14] MEDS: rOPINIRole HCL 1 MG TABLET (FP) PO SCH (10:21)
[2018-06-14] MEDS: oxyCODONE HCL 10 MG SUSTAINED ACTING TABLET PO SCH (10:22)
[2018-06-14] MEDS: ACETAMINOPHEN 325 MG TABLET (FP) PO PRN (10:22)
[2018-06-14] MEDS: MULTIVITAMINS (DAILY MVI) TABLET (FP) PO SCH (10:23)
[2018-06-14] MEDS: SENNOSIDES/DOCUSATE COMBO (SENNA PLUS) TABLET (UD) PO SCH (10:23)
[2018-06-14] MEDS: PANTOPRAZOLE 20 MG TABLET (FP) PO SCH (10:23)
[2018-06-14] MEDS: RIVASTIGMINE TARTRATE 1.5 MG CAPSULE PO SCH (10:24)
[2018-06-14] MEDS: GABAPENTIN 300 MG CAPSULE (FP) PO SCH (10:24)
[2018-06-14] MEDS: ASPIRIN 325 MG TABLET PO SCH (10:24)
[2018-06-14] MEDS ORDERED: chlordiazePOXIDE 5 MG CAPSULE PO SCH (13:00)
[2018-06-14] MEDS ORDERED: chlordiazePOXIDE 5 MG CAPSULE PO PRN (13:00)
[2018-06-14 14:01] VITALS: BP 126/42; PULSE 69; TEMP 98
--- NOTE | 2018-06-14 16:00 | PATH ---
Surgical Pathology Report Patient Name: ASIA PETERSON Med. Rec. #: [id number] /Age/Gender: 1950 (Age: 67) / M Account: [id number] Location: [facility] MED-SURG Taken: 06/12/2018 Received: 06/12/2018 Reported: 06/14/2018 Physicians: Marcos Butler M.D. Specimen(s) Received RIGHT KNEE BONES Clinical History Right knee osteoarthritis Final Diagnosis KNEE BONES, RIGHT, TOTAL KNEE REPLACEMENT: DEGENERATIVE JOINT DISEASE. Electronically Signed Geovanna Haney M.D. Gross Description Received in formalin labeled "right knee bones," is a 12.0 x 10.0 x 1.5 cm aggregate of multiple portions of bone and soft tissue, consistent with knee bones. There is a 1.2 cm greatest dimension area of eburnation identified. The remaining articular surfaces are landeros-yellow and diffusely granular. The underlying trabecular bone is yellow and hard. Relay Technician sections are submitted in one cassette, following decalcification. /06/13/2018 [facility]06/13/2018
== END 2018-06-14 15:21 | disposition home health service (06) | DRG 470 ==
LOC: FM/S 05:52
PROVIDERS: ADMIT Orthopaedic Surgery; ATTEND Orthopaedic Surgery
PROC: 8E0YXCZ Robotic Assisted Procedure of Lower Extremity (ICD-10-PCS; 2018-06-12)
PROC: 0SRC0JA Replacement of Right Knee Joint with Synthetic Substitute, Uncemented, Open Approach (ICD-10-PCS; principal; 2018-06-12 08:23)
DX: M17.11 Unilateral primary osteoarthritis, right knee (principal); J44.9 Chronic obstructive pulmonary disease, unspecified; K21.9 Gastro-esophageal reflux disease without esophagitis; G89.29 Other chronic pain; M54.5 Low back pain; G20 Parkinson's disease
CPT/HCPCS: 36415; 73560-TC-RT-FY; 85027; 88304-TC; 88311-TC; 94760; 97116-GP; 97163-GP

== ENCOUNTER 2019-10-03 04:44 | Day surgery (SDC) | payer BC, OTHER ==
[2019-09-30 14:22] VITALS: BMI 28.5
[2019-10-03] MEDS ORDERED: DEXAMETHASONE SOD PHOSPHATE/PF 10 MG/ML SDV ONE ×2 (08:06→08:13)
--- NOTE | 2019-10-03 08:06 | HP ---
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 No: O2 Dependent Gastrointestinal: Yes: GERD, Other (jackson's esophagus). No: Ascites, Cancer Hepatobiliary: Yes: Cirrhosis Heme/Onc: Yes: Hemochromatosis Musculoskeletal: Yes: Chronic low back pain - Current Medications Current Medications: Home Medications Medication Instructions Recorded Rivastigmine Tartrate [Exelon] 1 cap PO DAILY 08/14/15 Omeprazole 20 mg PO DAILY 05/21/18 Ropinirole HCl [Requip -] 1 mg PO BID 05/28/18 Oxycodone HCl 20 mg PO QID PRN MDD 4 09/30/19 Satellite Physical Exam - Physical Examination General Appearance: Well Nourished, Well Developed, Alert & Oriented x3 ENT: Clear Lung: Normal air movement Extremities: Other (left shoulder- + ttp, decr rom, + neer, + alarcon, + empty can, nvi, MRI + rct) Neurological: Intact, Alert, Oriented Satellite Impression/Plan - Impression/Plan Impression: left shoulder rct Operative Procedure: left shoulder arthroscopy with RCR, [facility] Date to be Performed: 10/03/19
[2019-10-03] MEDS ORDERED: MIDAZOLAM HCL 2 MG/2 ML SINGLE DOSE VIAL ONE ×2 (08:15)
[2019-10-03] MEDS ORDERED: PROPOFOL 20 ML ONE ×3 (09:45→12:15)
[2019-10-03] MEDS ORDERED: ceFAZolin SODIUM 1 GM VIAL ONE ×2 (10:06→12:21)
[2019-10-03] MEDS ORDERED: LIDOCAINE HCL/PF 2% SDV 5ML VIAL ONE (10:06)
[2019-10-03] MEDS ORDERED: DEXAMETHASONE SOD PHOSPHATE 4 MG/1 ML VIAL ONE (10:06)
[2019-10-03] MEDS ORDERED: ONDANSETRON 4 MG/2 ML VIAL IVPUSH PRN (10:53)
[2019-10-03] MEDS ORDERED: oxyCODONE HCL 5 MG TABLET PO PRN (10:53)
[2019-10-03] MEDS ORDERED: LACTATED RINGERS SOLUTION 1,000 ML IV SCH (11:00)
--- NOTE | 2019-10-03 11:16 | OP ---
Operative Note - Note: Operative Date: 10/03/19 ([facility]) Pre-Operative Diagnosis: left shoulder rct Operation: left shoulder arthroscopy with RCR, SAD, JOHNATHON Post-Operative Diagnosis: Same as Pre-op Surgeon: Marcos Butler Production Supervisor: Nick Dunlap Anesthesia: General, Local Specimens Removed: shavings Estimated Blood Loss (mls): 5
--- NOTE | 2019-10-03 12:00 | OP ---
DATE OF OPERATION: 10/03/2019 PREOPERATIVE DIAGNOSIS: Left shoulder impingement syndrome, rotator cuff tear, and osteoarthritis. POSTOPERATIVE DIAGNOSIS: Left shoulder impingement syndrome, rotator cuff tear, osteoarthritis, and adhesive capsulitis. PROCEDURE: Left shoulder arthroscopy, subacromial decompression, distal clavicle excision, arthroscopic rotator cuff repair and manipulation, manipulation under anesthesia. DRAINS: None. COMPLICATIONS: None. SPECIMENS: Arthroscopic shavings. ESTIMATED BLOOD LOSS: Minimal. BLOOD TRANSFUSION: None. FLUID REPLACEMENT: 1500 mL. SURGEON: Keshia Altamirano MD BAY STOCKER: ROSSANA Grimaldo ANESTHESIOLOGIST: Nette Gonzalez, REF-MARISAN; HIPOLITO Cuevas ANESTHESIA: Left interscalene block and LMA anesthesia. INDICATIONS: This patient is a 68-year-old male with preoperative diagnosis of left shoulder pain, impingement syndrome, osteoarthritis, and a rotator cuff tear. After understanding the potential risks, complications, alternatives, and benefits of surgery versus nonsurgical treatment, the patient elects to undergo this procedure. The patient understands that he may need additional surgery including possibility of a shoulder replacement for osteoarthritis. He may not get complete relief of his pain because of the continuation of the osteoarthritis after this procedure. He understands that. All other questions and concerns were addressed and he has elected to undergo this procedure. DETAILS OF PROCEDURE: The patient was brought to the operating room and peripheral IV placed. IV sedation given. Then 2 g of IV Ancef was given. A left interscalene block was performed in the holding area. The LMA anesthesia was induced. He was placed into the beach-chair position with the elbow throughout. The left upper extremity was put through a manipulation under anesthesia. He definitely had some degree of adhesive capsulitis. Before the manipulation I was able to forward flex him and abduct him to about 110 degrees and afterwards about 135 degrees. Internal and external rotation were also increased by about 15 degrees each. After this, the left upper extremity was prepped and draped in a sterile fashion. The bony landmarks were marked out with a marking pen. Posterior portal established. Then a diagnostic glenohumeral arthroscopy was performed. Inside the glenohumeral joint the patient was seen to have significant glenohumeral osteoarthritis of both the glenoid and the humeral head. The labrum was frayed. The biceps tendon was frayed. The patient clearly had a full-thickness rotator cuff tear. The glenohumeral joint was copiously irrigated and washed out. All instrumentation removed. The excess saline removed. The arthroscope was introduced into the subacromial space. The patient had a tremendous amount of inflammatory bursitis and inflammation. A lateral portal was established with a spinal needle under direct visualization, and then using a number 15 scalpel blade and a green cannula it was introduced into the joint. The ArthroCare was used to do a soft tissue bursectomy. After an extensive soft tissue debridement, I was able to directly visualize a large bony subacromial spur and a moderate sized subdistal clavicular spur. The soft tissue was cleaned off of both of these with the ArthroCare wand and straight shaver. Then the 5.5-mm oval katie was used to do a bony decompression with fine tuning reversed and then the shaver was reintroduced to fine tune it and further remove all soft tissue and bony debris including the lateral gutter. The decompression was complete. Photographs were taken. Next, the arm was put through a full range of motion. Additional bursectomy was performed. The patient had a tremendous amount of bursitis. Subdeltoid bursectomy was performed as well first with the ArthroCare wand and then the straight shaver. This revealed a crescent shaped smaller than expected rotator cuff tear through the distal insertion of the supraspinatus. There was no significant retraction. Overall it was quite repairable. The area was cleaned up. The bed was cleaned up. The lateral subdeltoid bursitis was removed first with the ArthroCare wand and then the straight shaver. Then using the Bountii needle passer, 2 FiberWires were placed through the crescent shaped portion of the supraspinatus tear fed through an Arthrex swivel lock anchor. The screw was put down into the humeral head in the standard fashion. Overall, we got a good "squeak." There was good quality bone. This brought the rotator cuff tear down quite nicely. The arm was put through a full range of motion. There were no other points of either weak tendon, thin tendon, or tear. Therefore, I felt the patient did not need any other additional fixation of the rotator cuff. The area was again copiously irrigated and washed out. All excess saline and instrumentation removed. The arthroscopy portal was closed with 3-0 nylon sutures. The area was then washed and dried and covered with Aquacel dressing. He was put into a shoulder immobilizer. Total operative time was about an hour and 15 minutes. There were no complications during the case. The patient was extubated and brought to the ambulatory recovery room in stable condition. Of note, the patient did have significant widespread areas of osteoarthritis which may or may not bother him to the point that he would need a shoulder replacement. It could be at this moment either a total shoulder replacement or a reverse total shoulder replacement, possibly he would never need anything. We might go with a cortisone and hyaluronic acid gel injections before we consider additional surgical intervention. KESHIA ALTAMIRANO M.D. [id number]
[2019-10-03 12:45] VITALS: BP 135/75; PULSE 74; TEMP 98
--- NOTE | 2019-10-04 17:24 | PATH ---
Surgical Pathology Report Patient Name: ASIA PETERSON Med. Rec. #: [id number] /Age/Gender: 1950 (Age: 68) / M Account: [id number] Location: [facility] SURGICAL Taken: 10/03/2019 Received: 10/03/2019 Reported: 10/04/2019 Physicians: Marcos Butler M.D. Specimen(s) Received LEFT SHOULDER SHAVINGS Clinical History Left shoulder impingement syndrome Final Diagnosis SHOULDER SHAVINGS, LEFT, ARTHROSCOPY: FRAGMENTS OF BENIGN CARTILAGE, BONE, DENSE FIBROCONNECTIVE TISSUE, ADIPOSE TISSUE, SCANT SYNOVIUM, AND SKELETAL MUSCLE. Electronically Signed Lauren Blackwood M.D. Gross Description Received in formalin, labeled "left shoulder shavings," is a 6.4 x 5.5 x 0.4 cm. aggregate of landeros-yellow soft tissue fragments. A outbound telemarketing representative portion is submitted in one cassette. 10/03/2019 [facility]10/03/2019
== END 2019-10-03 12:56 | disposition home or self-care (01) ==
LOC: JASU-SURG 04:44
PROVIDERS: ATTEND Orthopaedic Surgery
PROC: 0PBB4ZZ Excision of Left Clavicle, Percutaneous Endoscopic Approach (ICD-10-PCS; 2019-10-03)
PROC: 0RNK4ZZ Release Left Shoulder Joint, Percutaneous Endoscopic Approach (ICD-10-PCS; principal; 2019-10-03 10:09)
PROC: 0LQ24ZZ Repair Left Shoulder Tendon, Percutaneous Endoscopic Approach (ICD-10-PCS; 2019-10-03 10:09)
DX: M75.42 Impingement syndrome of left shoulder (principal); M19.012 Primary osteoarthritis, left shoulder; M75.02 Adhesive capsulitis of left shoulder; M75.102 Unspecified rotator cuff tear or rupture of left shoulder, not specified as traumatic
CPT/HCPCS: 88304-TC; 94760

== ENCOUNTER 2020-01-08 08:59 | Emergency (ER) | payer BC, OTHER ==
[2020-01-08 09:09] VITALS: BP 144/94; PULSE 90; TEMP 100.3; BMI 29.2
== END 2020-01-08 10:20 | disposition home or self-care (01) ==
LOC: FER 08:59
DX: J44.1 Chronic obstructive pulmonary disease with (acute) exacerbation (principal)
CPT/HCPCS: 71045-TC-FY; 99285-25; C9803; U0003

== ENCOUNTER 2020-06-17 07:27 | Emergency (ER) | payer BC, OTHER ==
[2020-06-17] MEDS ORDERED: SODIUM CHLORIDE 1,000 ML IV SCH ×2 (07:30→09:00)
[2020-06-17 09:00] LABS: BASO % 0.4 % (0-2.0); HEMATOCRIT 41.3 % (35.4-49); HEMOGLOBIN 14.1 GM/dL (11.7-16.9); LYMPH % 10.4 % (8-40); MCH 35.5 pg (25.7-33.7); MCHC 34.1 g/dl (32.0-35.9); MEAN CELL VOLUME 104.3 fl (80-96); MEAN PLT VOLUME 8.1 fl (7.5-11.1); MONO % 9.8 % (3.8-10.2); NEUT % 78.4 % (42.8-82.8); PLATELET COUNT 131 K/MM3 (134-434); RBC 3.96 M/mm3 (4.00-5.60); RDW 13.8 % (11.9-15.9); WHITE BLOOD COUNT 6.6 K/mm3 (4.0-10.0)
[2020-06-17 09:13] LABS: INR 1.54 (0.83-1.09); PROTHROMBIN TIME (PATIENT) 18.4 SEC (9.7-13.0)
[2020-06-17 09:16] LABS: ACTIVATED PTT 35.7 SECONDS (25.2-36.5)
[2020-06-17 09:25] LABS: CHLORIDE 99 mmol/L (98-107); SODIUM 136 mmol/L (136-145)
[2020-06-17 09:27] LABS: ALBUMIN 3.1 g/dl (3.4-5.0); ANION GAP 8 MMOL/L (8-16); BLOOD UREA NITROGEN 19.6 mg/dL (7-18); CALCIUM 8.2 mg/dL (8.5-10.1); CO2 30 mmol/L (21-32)
[2020-06-17 09:28] LABS: GLUCOSE,RANDOM 110 mg/dL (74-106)
[2020-06-17 09:30] LABS: CHOLESTEROL 151 mg/dL (50-200); CREATININE 0.7 mg/dL (0.55-1.3); SGOT/AST 56 U/L (15-37); SGPT/ALT 21 U/L (13-61); TRIGLYCERIDES 62 mg/dL (0-150)
[2020-06-17 09:31] LABS: LDL CHOLESTEROL (ONLY SJRH) 70 mg/dL (5-100)
[2020-06-17 09:32] LABS: TOT PROT 6.4 g/dl (6.4-8.2)
[2020-06-17 09:33] LABS: ALK PHOS 109 U/L (45-117); HDL CHOLESTEROL 72 mg/dL (40-60)
[2020-06-17 09:37] LABS: URINE APPEARANCE CLEAR; URINE BILIRUBIN NEGATIVE (NEGATIVE); URINE COLOR DK YELLOW; URINE GLUCOSE (UA) NEGATIVE (NEGATIVE); URINE KETONE TRACE (NEGATIVE)
[2020-06-17 09:38] LABS: URINE LEUK ESTERASE TRACE (NEGATIVE); URINE NITRITE POSITIVE (NEGATIVE); URINE PROTEIN 100 (NEGATIVE); URINE UROBILINOGEN >=8.0 E.U./dl mg/dL (0.2-1.0)
[2020-06-17 11:06] VITALS: BP 138/81; PULSE 75; TEMP 100.8; BMI 30.1
== END 2020-06-17 09:00 | disposition short-term general hospital (02) ==
LOC: JER 07:27
DX: I63.9 Cerebral infarction, unspecified (principal)
CPT/HCPCS: 36415; 70450-TC; 70496-TC; 70498-TC; 71045-TC-FY; 80053; 80061; 81003; 82550; 83721; 84484; 85025; 85610; 85730; 86850; 86900; 86901; 87040; 87086; 93005; 93010; 99285-25; C9803; Q9967; U0003; U0005

== ENCOUNTER 2020-09-05 18:52 | Inpatient (IN) | payer BC, OTHER ==
[2020-09-05 20:05] LABS: EPITHELIAL CELLS RARE /hpf
[2020-09-05 20:25] LABS: BASO % 0.4 % (0-2.0); EOS % 1.5 % (0-4.5); LYMPH % 13.7 % (8-40); RBC 3.64 M/mm3 (4.00-5.60); RDW 13.8 % (11.9-15.9)
[2020-09-05 20:28] LABS: HEMATOCRIT 35.9 % (35.4-49); HEMOGLOBIN 12.3 GM/dl (11.7-16.9); MCH 33.6 pg (25.7-33.7); MCHC 34.1 g/dl (32.0-35.9); MEAN CELL VOLUME 98.6 fl (80-96); MEAN PLT VOLUME 7.8 fl (7.5-11.1); MONO % 11.3 % (3.8-10.2); NEUT % 73.1 % (42.8-82.8); PLATELET COUNT 172 10^3/uL (134-434); WHITE BLOOD COUNT 9.1 K/mm3 (4.0-10.8)
[2020-09-05 20:29] LABS: ANION GAP 5 MMOL/L (8-16); CALCIUM 8.4 mg/dl (8.5-10); CHLORIDE 104 mmol/L (98-107); CO2 26 mmol/L (21-32); GLUCOSE,RANDOM 111 mg/dl (74-106); SODIUM 135 mmol/L (136-145)
[2020-09-05 20:32] LABS: ALBUMIN 3.7 g/dl (3.4-5.0); ALK PHOS 121 U/L (45-117); BILIRUBIN,TOTAL 1.2 mg/dl (0.2-1); CREATININE 0.5 mg/dl (0.55-1.3); SGOT/AST 23 U/L (15-37); SGPT/ALT 9 U/L (13-61)
[2020-09-05] MEDS ORDERED: CARBIDOPA/LEVODOPA 25/100 TABLET (FP) PO ONE (21:04)
[2020-09-05] MEDS ORDERED: CEFTRIAXONE 1,000 MG in DEXTROSE 5%-WATER - 50 ML IVPB ONE (22:05)
[2020-09-05] MEDS ORDERED: AZITHROMYCIN IVPB 500 MG in DEXTROSE 5%-WATER - 250 ML IVPB ONE (22:06)
[2020-09-05] MEDS ORDERED: AZITHROMYCIN 500 MG VIAL IVPB ONE (22:25)
[2020-09-05] MEDS ORDERED: cefTRIAXone SODIUM 1 GM VIAL ONE (22:25)
[2020-09-06] MEDS: SODIUM CHLORIDE 1,000 ML IV SCH ×2 (03:59→04:00)
[2020-09-06 06:37] VITALS: BMI 28.5
[2020-09-06] MEDS: CARBIDOPA/LEVODOPA 25/100 TABLET (FP) PO SCH ×3 (08:29→21:35)
[2020-09-06 09:10] LABS: BASO % 1.2 % (0-2.0); HEMATOCRIT 34.5 % (35.4-49); HEMOGLOBIN 11.6 GM/dl (11.7-16.9); LYMPH % 24.1 % (8-40); MCH 33.3 pg (25.7-33.7); MCHC 33.7 g/dl (32.0-35.9); MEAN CELL VOLUME 99.1 fl (80-96); MONO % 13.4 % (3.8-10.2); NEUT % 59.3 % (42.8-82.8); PLATELET COUNT 149 10^3/uL (134-434); RBC 3.48 M/mm3 (4.00-5.60); RDW 13.7 % (11.9-15.9); WHITE BLOOD COUNT 6.4 K/mm3 (4.0-10.8)
[2020-09-06 09:31] LABS: ALBUMIN 3.3 g/dl (3.4-5.0); BILIRUBIN,TOTAL 1.4 mg/dl (0.2-1); CALCIUM 8.9 mg/dl (8.5-10); CREATININE 0.4 mg/dl (0.55-1.3); TOT PROT 6.3 g/dl (6.4-8.2)
[2020-09-06] MEDS: CARVEDILOL 3.125 MG TABLET (FP) PO SCH ×2 (09:31→21:28)
[2020-09-06] MEDS: PANTOPRAZOLE 20 MG TABLET PO SCH (09:31)
[2020-09-06] MEDS ORDERED: APIXABAN 2.5 MG TABLET PO SCH (10:00)
[2020-09-06] MEDS ORDERED: PT OWN MED DRAWER 7, Y5N ONE ×2 (18:54→21:22)
[2020-09-06] MEDS ORDERED: cefTRIAXone SODIUM 1 GM VIAL ONE (21:22)
[2020-09-06] MEDS ORDERED: DEXTROSE 5%-WATER - 50 ML IVPB ONE (21:23)
[2020-09-06] MEDS: DABIGATRAN ETEXILATE MESYLATE 150 MG CAPSULE PO SCH (21:31)
[2020-09-06] MEDS ORDERED: CEFTRIAXONE 1 GM in DEXTROSE 5%-WATER - 50 ML IVPB SCH (22:00)
[2020-09-06] MEDS ORDERED: ATORVASTATIN CA 40 MG TABLET (FP) PO SCH (22:00)
[2020-09-06] MEDS ORDERED: MOMETASONE FUROATE 220 MCG/IH INHALER IH SCH (22:00)
[2020-09-06] MEDS ORDERED: traZODone HCL 50 MG TABLET (FP) PO SCH (22:00)
[2020-09-06] MEDS ORDERED: AZITHROMYCIN IVPB 500 MG/250 ML BAG IVPB SCH (22:00)
[2020-09-07] MEDS ORDERED: PT OWN MED DRAWER 7, Y5N ONE (06:08)
[2020-09-07] MEDS: SODIUM CHLORIDE 1,000 ML IV SCH (06:09)
[2020-09-07] MEDS: CARBIDOPA/LEVODOPA 25/100 TABLET (FP) PO SCH ×2 (06:09→14:18)
[2020-09-07 08:10] LABS: BASO % 1.3 % (0-2.0); HEMOGLOBIN 11.8 GM/dl (11.7-16.9); LYMPH % 25.5 % (8-40); MCH 33.7 pg (25.7-33.7); MCHC 33.6 g/dl (32.0-35.9); MEAN CELL VOLUME 100.3 fl (80-96); MEAN PLT VOLUME 7.7 fl (7.5-11.1); NEUT % 54.2 % (42.8-82.8); PLATELET COUNT 154 10^3/uL (134-434); RBC 3.49 M/mm3 (4.00-5.60); RDW 13.7 % (11.9-15.9); WHITE BLOOD COUNT 4.5 K/mm3 (4.0-10.8)
[2020-09-07 08:13] LABS: ALBUMIN 3.2 g/dl (3.4-5.0); BILIRUBIN,TOTAL 1.3 mg/dl (0.2-1); CALCIUM 8.9 mg/dl (8.5-10); CREATININE 0.4 mg/dl (0.55-1.3); MAGNESIUM 1.6 mg/dL (1.8-2.4); TOT PROT 6.1 g/dl (6.4-8.2)
[2020-09-07] MEDS: PANTOPRAZOLE 20 MG TABLET PO SCH (09:38)
[2020-09-07] MEDS: DABIGATRAN ETEXILATE MESYLATE 150 MG CAPSULE PO SCH (09:38)
[2020-09-07] MEDS: CARVEDILOL 3.125 MG TABLET (FP) PO SCH (09:38)
[2020-09-07] MEDS ORDERED: MAGNESIUM SULF 50% (8.12 MEQ/2 ML-1 GM VIAL) IVPB ONE (10:31)
[2020-09-07] MEDS ORDERED: MAGNESIUM SULFATE IN WATER 2 GM/50 ML IVPB IVPB ONE (10:45)
[2020-09-07 14:44] VITALS: BP 120/55; PULSE 76; TEMP 97.8
== END 2020-09-07 15:15 | disposition home or self-care (01) | DRG 864 ==
LOC: FER 18:52 → SUPCPDRO 18:52 → FM/S 09-06 01:46
PROVIDERS: ADMIT Hospitalist; ATTEND Nurse Practitioner Acute Care
DX: R50.9 Fever, unspecified (principal); I48.91 Unspecified atrial fibrillation; F03.90 Unspecified dementia, unspecified severity, without behavioral disturbance, psychotic disturbance, mood disturbance, and anxiety; J44.9 Chronic obstructive pulmonary disease, unspecified; K21.9 Gastro-esophageal reflux disease without esophagitis; G20 Parkinson's disease; K22.70 Barrett's esophagus without dysplasia; M54.5 Low back pain; Z86.73 Personal history of transient ischemic attack (TIA), and cerebral infarction without residual deficits
CPT/HCPCS: 36415; 71045-TC-FY; 80053; 81003; 81015; 82550; 83605; 83735; 84484; 85025; 87040; 87086; 93005; 97116-GP; 97163-GP; 99285-25; C9803; U0003; U0005

== ENCOUNTER 2021-04-18 13:49 | Emergency (ER) | payer BC, OTHER ==
[2021-04-18 13:54] VITALS: TEMP 98; BMI 29.2
[2021-04-18] MEDS ORDERED: methylPREDNISolone NA SUCC 125 MG/2 ML VIAL IVPUSH ONE (14:27)
[2021-04-18] MEDS ORDERED: methylPREDNISolone NA SUCC 125 MG/2 ML VIAL ONE ×2 (14:40→14:41)
[2021-04-18] MEDS ORDERED: SOTROVIMAB 500 MG in SODIUM CHLORIDE 100 ML IVPB ONE (14:53)
[2021-04-18 19:00] VITALS: BP 138/72; PULSE 74
== END 2021-04-18 19:00 | disposition home or self-care (01) ==
LOC: JCOVINFU 13:49
PROC: 3E033GC Introduction of Other Therapeutic Substance into Peripheral Vein, Percutaneous Approach (ICD-10-PCS; principal; 2021-04-18)
PROC: 3E03329 Introduction of Other Anti-infective into Peripheral Vein, Percutaneous Approach (ICD-10-PCS; 2021-04-18)
DX: U07.1 COVID-19 (principal)
CPT/HCPCS: 71046-TC-FY; 99284-25; M0247; Q0247

== ENCOUNTER 2021-06-05 07:41 | Observation (INO) | payer BC, OTHER ==
[2021-06-05 10:15] LABS: EOS % 1.9 % (0-4.5); HEMATOCRIT 36.8 % (35.4-49); HEMOGLOBIN 12.5 GM/dL (11.7-16.9); LYMPH % 24.7 % (8-40); MCH 32.6 pg (25.7-33.7); MCHC 33.8 g/dl (32.0-35.9); MEAN CELL VOLUME 96.3 fl (80-96); MONO % 11.1 % (3.8-10.2); NEUT % 61.3 % (42.8-82.8); PLATELET COUNT 164 10^3/uL (134-434); RBC 3.82 M/mm3 (4.00-5.60); RDW 14.4 % (11.9-15.9); WHITE BLOOD COUNT 4.6 K/mm3 (4.0-10.0)
[2021-06-05 10:30] LABS: INR 1.52 (0.83-1.09); PROTHROMBIN TIME (PATIENT) 17.6 SEC (9.7-13.0)
[2021-06-05 10:33] LABS: ACTIVATED PTT 37.4 SECONDS (25.2-36.5)
[2021-06-05 10:34] LABS: ALBUMIN 3.2 g/dl (3.4-5.0); BLOOD UREA NITROGEN 13.8 mg/dL (7-18); CALCIUM 8.5 mg/dL (8.5-10.1)
[2021-06-05 10:38] LABS: CREATININE 0.7 mg/dL (0.55-1.3)
[2021-06-05 10:40] LABS: TOT PROT 7.2 g/dl (6.4-8.2)
[2021-06-05] MEDS: CARVEDILOL 3.125 MG TABLET (FP) PO SCH (21:52)
[2021-06-05] MEDS: CARBIDOPA/LEVODOPA 25/100 TABLET (FP) PO SCH (21:52)
[2021-06-05] MEDS: ATORVASTATIN CA 40 MG TABLET (FP) PO SCH (21:52)
[2021-06-05] MEDS: APIXABAN 2.5 MG TABLET PO SCH (21:52)
[2021-06-05 22:29] VITALS: BMI 35.1
[2021-06-06] MEDS: CARBIDOPA/LEVODOPA 25/100 TABLET (FP) PO SCH ×3 (06:04→21:00)
[2021-06-06 07:33] LABS: BASO % 0.7 % (0-2.0); EOS % 2.5 % (0-4.5); HEMATOCRIT 35.4 % (35.4-49); HEMOGLOBIN 12.1 GM/dL (11.7-16.9); LYMPH % 26.2 % (8-40); MCH 32.9 pg (25.7-33.7); MCHC 34.1 g/dl (32.0-35.9); MEAN CELL VOLUME 96.4 fl (80-96); MEAN PLT VOLUME 7.9 fl (7.5-11.1); MONO % 13.6 % (3.8-10.2); PLATELET COUNT 146 10^3/uL (134-434); RBC 3.67 M/mm3 (4.00-5.60); WHITE BLOOD COUNT 5.1 K/mm3 (4.0-10.0)
[2021-06-06 07:35] LABS: CALCIUM 8.3 mg/dL (8.5-10.1)
[2021-06-06 07:38] LABS: BLOOD UREA NITROGEN 17.7 mg/dL (7-18)
[2021-06-06 07:39] LABS: CREATININE 0.6 mg/dL (0.55-1.3)
[2021-06-06 07:40] LABS: BILIRUBIN,TOTAL 0.8 mg/dL (0.2-1); TOT PROT 6.7 g/dl (6.4-8.2)
[2021-06-06] MEDS: CARVEDILOL 3.125 MG TABLET (FP) PO SCH ×2 (10:08→21:00)
[2021-06-06] MEDS: PANTOPRAZOLE 20 MG TABLET PO SCH (10:08)
[2021-06-06] MEDS: ASPIRIN COATED 81 MG TABLET.EC PO SCH (10:08)
[2021-06-06] MEDS: APIXABAN 2.5 MG TABLET PO SCH ×2 (10:08→21:00)
[2021-06-06] MEDS: ATORVASTATIN CA 40 MG TABLET (FP) PO SCH (21:00)
[2021-06-06] MEDS: MOMETASONE FUROATE 220 MCG/IH INHALER IH SCH (21:01)
[2021-06-07] MEDS: CARBIDOPA/LEVODOPA 25/100 TABLET (FP) PO SCH ×2 (05:41→15:29)
[2021-06-07] MEDS ORDERED: APIXABAN 5 MG TABLET PO SCH (08:27)
[2021-06-07] MEDS: CARVEDILOL 3.125 MG TABLET (FP) PO SCH (09:53)
[2021-06-07] MEDS: ASPIRIN COATED 81 MG TABLET.EC PO SCH (09:53)
[2021-06-07] MEDS: PANTOPRAZOLE 20 MG TABLET PO SCH (09:53)
[2021-06-07] MEDS ORDERED: traMADol HCL 50 MG TABLET PO PRN (16:03)
[2021-06-07] MEDS: MOMETASONE FUROATE 220 MCG/IH INHALER IH SCH (18:54)
[2021-06-07] MEDS ORDERED: rOPINIRole HCL 1 MG TABLET (FP) PO SCH ×2 (20:15→22:00)
[2021-06-07 21:16] VITALS: BP 140/64; PULSE 67; TEMP 98
== END 2021-06-07 21:29 | disposition left against medical advice (07) ==
LOC: JER 07:41 → JERBED 15:19 → J4W 20:16
PROVIDERS: ADMIT Family Medicine; ATTEND Family Medicine
DX: G31.83 Neurocognitive disorder with Lewy bodies (principal); E83.119 Hemochromatosis, unspecified; F11.20 Opioid dependence, uncomplicated; K22.70 Barrett's esophagus without dysplasia; I69.351 Hemiplegia and hemiparesis following cerebral infarction affecting right dominant side; F10.99 Alcohol use, unspecified with unspecified alcohol-induced disorder; R47.01 Aphasia; J44.9 Chronic obstructive pulmonary disease, unspecified; I48.91 Unspecified atrial fibrillation; K21.9 Gastro-esophageal reflux disease without esophagitis; G89.29 Other chronic pain; M54.59 Other low back pain; K74.60 Unspecified cirrhosis of liver; Z68.35 Body mass index [BMI] 35.0-35.9, adult; E66.9 Obesity, unspecified; Z79.01 Long term (current) use of anticoagulants; Z87.891 Personal history of nicotine dependence
CPT/HCPCS: 36415; 70450-TC; 70551-TC; 71045-TC-FY; 80053; 80061; 83036; 83735; 84443; 84484; 85025; 85610; 85730; 93005; 93010; 97116-GP; 97161-GP; 99285-25; C9803-CS; G0378; U0003; U0005

== ENCOUNTER 2022-11-15 06:17 | Day surgery (SDC) | payer BC, OTHER ==
[2022-11-14 10:45] VITALS: BMI 35.6
[2022-11-15] MEDS ORDERED: VANCOMYCIN 1,000 MG VIAL (RESTRICTED TO ID ONLY) ONE (07:11)
[2022-11-15] MEDS ORDERED: ceFAZolin SODIUM 1 GM VIAL ONE ×2 (07:11→08:18)
[2022-11-15] MEDS ORDERED: CELECOXIB 200 MG CAPSULE PO ONE (07:21)
[2022-11-15] MEDS ORDERED: CEFAZOLIN 2 GM in DEXTROSE 5%-WATER - 50 ML IVPB ONE (07:21)
[2022-11-15] MEDS ORDERED: TRANEXAMIC ACID 1000 MG/10 ML VIAL IVPUSH ONE (07:21)
[2022-11-15] MEDS ORDERED: BUPIVACAINE HCL/PF 0.5% (5 MG/ML) 30 ML VIAL IJ ONE (07:41)
[2022-11-15] MEDS ORDERED: BUPIVACAINE LIPOSOME/PF (EXPAREL) 266 MG/20 ML VIAL ONE (07:41)
[2022-11-15] MEDS ORDERED: MIDAZOLAM HCL 2 MG/2 ML SINGLE DOSE VIAL ONE ×2 (07:41→08:40)
[2022-11-15] MEDS ORDERED: ONDANSETRON 4 MG/2 ML VIAL IVPUSH PRN ×2 (07:57→10:07)
[2022-11-15] MEDS ORDERED: LACTATED RINGERS SOLUTION 1,000 ML IV SCH ×2 (08:00→10:15)
[2022-11-15] MEDS ORDERED: PROPOFOL 40 ML ONE (08:06)
[2022-11-15] MEDS ORDERED: BUPIVACAINE HCL/PF 0.5% (5MG/ML) 10 ML VIAL ONE (08:12)
[2022-11-15] MEDS ORDERED: TRANEXAMIC ACID 1000 MG/10 ML VIAL ONE (09:28)
[2022-11-15] MEDS ORDERED: ONDANSETRON 4 MG/2 ML VIAL ONE (09:28)
[2022-11-15] MEDS ORDERED: DEXAMETHASONE SOD PHOSPHATE 4 MG/1 ML VIAL ONE (09:28)
[2022-11-15] MEDS ORDERED: PATIENT'S OWN MEDICATION (NON-FORMULARY) (Omeprazole 20 MG Capsule.Dr) PO SCH (10:00)
[2022-11-15] MEDS ORDERED: oxyCODONE HCL 5 MG TABLET PO PRN (10:07)
[2022-11-15] MEDS ORDERED: ACETAMINOPHEN INJECTION 100 ML IVPB ONE (10:25)
[2022-11-15] MEDS ORDERED: KETOROLAC TROMETHAMINE 30 MG/1 ML VIAL ONE (10:25)
[2022-11-15] MEDS: KETOROLAC TROMETHAMINE 30 MG/1 ML VIAL IVPUSH SCH ×3 (10:27→19:49)
[2022-11-15] MEDS: ACETAMINOPHEN 1000 MG/100 ML BAG IVPB ONE ×2 (10:29→19:48)
[2022-11-15] MEDS: MULTIVITAMINS (DAILY MVI) TABLET (FP) PO SCH (13:11)
[2022-11-15] MEDS: FERROUS SO4 325 MG TABLET (FP) PO SCH (13:11)
[2022-11-15] MEDS: SENNOSIDES/DOCUSATE COMBO (SENNA PLUS) TABLET (UD) PO SCH ×2 (13:11→22:11)
[2022-11-15] MEDS: oxyCODONE HCL 5 MG TABLET PO PRN ×2 (13:12→16:32)
[2022-11-15] MEDS: FUROSEMIDE 40 MG TABLET (FP) PO SCH (14:24)
[2022-11-15] MEDS: CEFAZOLIN SODIUM 2 GM in DEXTROSE 5%-WATER 100 ML IVPB SCH (16:32)
[2022-11-15] MEDS: ACETAMINOPHEN 500 MG TABLET (FP) PO SCH (17:58)
[2022-11-15] MEDS: rOPINIRole HCL 1 MG TABLET (FP) PO SCH (22:12)
[2022-11-15] MEDS: CARVEDILOL 6.25 MG TABLET (FP) PO SCH (22:12)
[2022-11-15] MEDS: traZODone HCL 50 MG TABLET (FP) PO SCH (22:12)
[2022-11-16] MEDS: CEFAZOLIN SODIUM 2 GM in DEXTROSE 5%-WATER 100 ML IVPB SCH (00:23)
[2022-11-16] MEDS: ACETAMINOPHEN 500 MG TABLET (FP) PO SCH ×5 (01:23→23:55)
[2022-11-16] MEDS: oxyCODONE HCL 10 MG SUSTAINED ACTING TABLET PO SCH ×3 (06:24→21:02)
[2022-11-16] MEDS: FUROSEMIDE 40 MG TABLET (FP) PO SCH ×2 (07:00→13:15)
[2022-11-16] MEDS: APIXABAN 5 MG TABLET PO SCH ×2 (08:07→21:02)
[2022-11-16 08:17] LABS: HEMATOCRIT 33.2 % (35.4-49); HEMOGLOBIN 10.8 G/dL (11.7-16.9); MCH 31.3 pg (25.7-33.7); MCHC 32.7 g/dl (32.0-35.9); MEAN CELL VOLUME 95.9 fl (80-96); MEAN PLT VOLUME 8.1 fl (7.5-11.1); RBC 3.46 10^6/uL (4.00-5.60); RDW 13.8 % (11.9-15.9); WHITE BLOOD COUNT 7.2 10^3/uL (4.0-10.8)
[2022-11-16] MEDS: SENNOSIDES/DOCUSATE COMBO (SENNA PLUS) TABLET (UD) PO SCH ×2 (09:17→21:02)
[2022-11-16] MEDS: ATORVASTATIN CA 40 MG TABLET (FP) PO SCH (09:17)
[2022-11-16] MEDS: FERROUS SO4 325 MG TABLET (FP) PO SCH (09:17)
[2022-11-16] MEDS: MULTIVITAMINS (DAILY MVI) TABLET (FP) PO SCH (09:17)
[2022-11-16] MEDS: PANTOPRAZOLE 40 MG TABLET PO SCH (09:17)
[2022-11-16] MEDS: CARVEDILOL 6.25 MG TABLET (FP) PO SCH ×2 (09:18→21:02)
[2022-11-16] MEDS: oxyCODONE HCL 5 MG TABLET PO PRN ×3 (13:15→23:54)
[2022-11-16] MEDS: rOPINIRole HCL 1 MG TABLET (FP) PO SCH (21:01)
[2022-11-16] MEDS: traZODone HCL 50 MG TABLET (FP) PO SCH (21:02)
[2022-11-17] MEDS: ACETAMINOPHEN 500 MG TABLET (FP) PO SCH ×3 (06:36→18:34)
[2022-11-17] MEDS: FUROSEMIDE 40 MG TABLET (FP) PO SCH ×2 (06:36→13:34)
[2022-11-17] MEDS: APIXABAN 5 MG TABLET PO SCH ×2 (08:11→21:53)
[2022-11-17] MEDS: MULTIVITAMINS (DAILY MVI) TABLET (FP) PO SCH (09:03)
[2022-11-17] MEDS: FERROUS SO4 325 MG TABLET (FP) PO SCH (09:04)
[2022-11-17] MEDS: oxyCODONE HCL 10 MG SUSTAINED ACTING TABLET PO SCH ×2 (09:04→21:54)
[2022-11-17] MEDS: SENNOSIDES/DOCUSATE COMBO (SENNA PLUS) TABLET (UD) PO SCH ×2 (09:04→21:54)
[2022-11-17] MEDS: ATORVASTATIN CA 40 MG TABLET (FP) PO SCH (09:04)
[2022-11-17] MEDS: CARVEDILOL 6.25 MG TABLET (FP) PO SCH ×2 (09:04→21:53)
[2022-11-17] MEDS: PANTOPRAZOLE 40 MG TABLET PO SCH (09:04)
[2022-11-17 09:41] LABS: HEMATOCRIT 31.2 % (35.4-49); HEMOGLOBIN 10.1 G/dL (11.7-16.9); MCH 31.2 pg (25.7-33.7); MCHC 32.2 g/dl (32.0-35.9); MEAN CELL VOLUME 96.9 fl (80-96); MEAN PLT VOLUME 7.9 fl (7.5-11.1); PLATELET COUNT 218.5 10^3/uL (134-434); RBC 3.22 10^6/uL (4.00-5.60); RDW 14.5 % (11.9-15.9)
[2022-11-17] MEDS: oxyCODONE HCL 5 MG TABLET PO PRN (13:34)
[2022-11-17] MEDS: ALBUTEROL SO4 2.5/IPRATROPIUM 0.5 INH SOL 3 ML VIAL.NEB. NEB PRN (15:10)
[2022-11-17] MEDS: rOPINIRole HCL 1 MG TABLET (FP) PO SCH (21:54)
[2022-11-17] MEDS: traZODone HCL 50 MG TABLET (FP) PO SCH (21:55)
[2022-11-18] MEDS: ACETAMINOPHEN 500 MG TABLET (FP) PO SCH ×3 (00:46→12:59)
[2022-11-18] MEDS: ALBUTEROL SO4 2.5/IPRATROPIUM 0.5 INH SOL 3 ML VIAL.NEB. NEB PRN (06:30)
[2022-11-18] MEDS: FUROSEMIDE 40 MG TABLET (FP) PO SCH ×2 (06:33→16:17)
[2022-11-18] MEDS: APIXABAN 5 MG TABLET PO SCH ×2 (08:41→22:02)
[2022-11-18] MEDS: PANTOPRAZOLE 40 MG TABLET PO SCH (09:28)
[2022-11-18] MEDS: FERROUS SO4 325 MG TABLET (FP) PO SCH (09:28)
[2022-11-18] MEDS: ATORVASTATIN CA 40 MG TABLET (FP) PO SCH (09:28)
[2022-11-18] MEDS: MULTIVITAMINS (DAILY MVI) TABLET (FP) PO SCH (09:29)
[2022-11-18] MEDS: SENNOSIDES/DOCUSATE COMBO (SENNA PLUS) TABLET (UD) PO SCH ×2 (09:29→22:02)
[2022-11-18] MEDS: oxyCODONE HCL 10 MG SUSTAINED ACTING TABLET PO SCH (09:29)
[2022-11-18] MEDS: CARVEDILOL 6.25 MG TABLET (FP) PO SCH ×2 (09:30→22:02)
[2022-11-18] MEDS: traZODone HCL 50 MG TABLET (FP) PO SCH (22:02)
[2022-11-18] MEDS: rOPINIRole HCL 1 MG TABLET (FP) PO SCH (22:02)
[2022-11-18 22:50] VITALS: RESP 18
[2022-11-19] MEDS: FUROSEMIDE 40 MG TABLET (FP) PO SCH (06:04)
[2022-11-19] MEDS: APIXABAN 5 MG TABLET PO SCH (07:43)
[2022-11-19] MEDS: CARVEDILOL 6.25 MG TABLET (FP) PO SCH (09:45)
[2022-11-19] MEDS: SENNOSIDES/DOCUSATE COMBO (SENNA PLUS) TABLET (UD) PO SCH (09:45)
[2022-11-19] MEDS: ALBUTEROL SO4 2.5/IPRATROPIUM 0.5 INH SOL 3 ML VIAL.NEB. NEB PRN (09:45)
[2022-11-19] MEDS: ATORVASTATIN CA 40 MG TABLET (FP) PO SCH (09:45)
[2022-11-19] MEDS: PANTOPRAZOLE 40 MG TABLET PO SCH (09:45)
[2022-11-19] MEDS: MULTIVITAMINS (DAILY MVI) TABLET (FP) PO SCH (09:45)
[2022-11-19] MEDS: FERROUS SO4 325 MG TABLET (FP) PO SCH (09:45)
[2022-11-19 11:14] VITALS: BP 115/54; PULSE 76; TEMP 98
== END 2022-11-19 13:50 ==
LOC: FASUSAT 06:17 → EDSTATUS 09:30 → FM/S 12:01 → FASUSAT 11-19 13:50
PROVIDERS: ATTEND Orthopaedic Surgery
PROC: 8E0Y0CZ Robotic Assisted Procedure of Lower Extremity, Open Approach (ICD-10-PCS; 2022-11-15)
PROC: 0SRD0JA Replacement of Left Knee Joint with Synthetic Substitute, Uncemented, Open Approach (ICD-10-PCS; principal; 2022-11-15 08:29)
DX: M17.12 Unilateral primary osteoarthritis, left knee (principal)
CPT/HCPCS: 20985; 27447; C1776; S2900; 36415; 73560-TC-LT-FY; 85027; 94640; 94760; 97010-GP; 97116-GP; 97163-GP; C1713

== ENCOUNTER 2022-11-28 03:19 | Inpatient (IN) | payer BC, OTHER ==
[2022-11-28] MEDS ORDERED: VANCOMYCIN PREMIX 1.75 GM 1,750 MG/350 ML PIGGYBACK IVPB ONE (04:22)
[2022-11-28 04:54] LABS: BASO % 0.6 % (0-2.0); EOS % 3.6 % (0-4.5); HEMATOCRIT 29.8 % (35.4-49); HEMOGLOBIN 10.3 GM/dL (11.7-16.9); LYMPH % 19.2 % (8-40); MCH 32.5 pg (25.7-33.7); MCHC 34.4 g/dl (32.0-35.9); MEAN CELL VOLUME 94.5 fl (80-96); MEAN PLT VOLUME 6.6 fl (7.5-11.1); MONO % 11.1 % (3.8-10.2); NEUT % 65.5 % (42.8-82.8); PLATELET COUNT 234 10^3/uL (134-434); RBC 3.16 M/mm3 (4.00-5.60); RDW 15.1 % (11.9-15.9); WHITE BLOOD COUNT 4.9 K/mm3 (4.0-10.0)
[2022-11-28 05:05] LABS: POTASSIUM 4.2 mmol/L (3.5-5.1)
[2022-11-28 05:07] LABS: ALBUMIN 2.9 g/dl (3.4-5.0); BLOOD UREA NITROGEN 13.6 mg/dL (7-18); CALCIUM 8.3 mg/dL (8.5-10.1)
[2022-11-28 05:10] LABS: CREATININE 0.7 mg/dL (0.55-1.3)
[2022-11-28 05:12] LABS: BILIRUBIN,TOTAL 1.4 mg/dL (0.2-1); TOT PROT 6.6 g/dl (6.4-8.2)
[2022-11-28] MEDS ORDERED: PIPERACILLIN/TAZOB 4.5 GM 4.5 GM in DEXTROSE 5%-WATER 100 ML IVPB ONE (05:26)
[2022-11-28 07:00] LABS: INR 1.58 (0.83-1.09); PROTHROMBIN TIME (PATIENT) 18.3 SEC (9.7-13.0)
[2022-11-28 07:02] LABS: ACTIVATED PTT 35.2 SECONDS (25.2-36.5)
[2022-11-28] MEDS ORDERED: PIPERACILLIN/TAZOB 4.5 GM 4.5 GM/100 ML BAG IVPB ONE (07:17)
[2022-11-28] MEDS ORDERED: ACETAMINOPHEN 1000 MG/100 ML BAG IVPB ONE (09:14)
[2022-11-28] MEDS ORDERED: ACETAMINOPHEN INJECTION 100 ML IVPB ONE (09:19)
[2022-11-28] MEDS ORDERED: oxyCODONE HCL 5 MG TABLET PO ONE (09:24)
[2022-11-28] MEDS ORDERED: oxyCODONE HCL 5 MG TABLET ONE (09:35)
[2022-11-28] MEDS ORDERED: oxyCODONE HCL 5 MG TABLET PO PRN (10:10)
[2022-11-28] MEDS ORDERED: CEFAZOLIN SODIUM 2 GM in DEXTROSE 5%-WATER 100 ML IVPB SCH (12:15)
[2022-11-28 14:07] VITALS: BMI 38.2
[2022-11-28] MEDS: oxyCODONE HCL 5 MG TABLET PO PRN ×2 (16:28→21:30)
[2022-11-28] MEDS: FUROSEMIDE 40 MG TABLET (FP) PO SCH (16:31)
[2022-11-28] MEDS: DOXYCYCLINE HYCLATE 100 MG CAPSULE PO SCH (17:12)
[2022-11-28] MEDS: CEFAZOLIN SODIUM 2 GM in DEXTROSE 5%-WATER 100 ML IVPB SCH (17:12)
[2022-11-28] MEDS: CARVEDILOL 6.25 MG TABLET (FP) PO SCH (21:29)
[2022-11-28] MEDS: ATORVASTATIN CA 20 MG TABLET (FP) PO SCH (21:29)
[2022-11-28] MEDS: rOPINIRole HCL 1 MG TABLET (FP) PO SCH (21:29)
[2022-11-29] MEDS: CEFAZOLIN SODIUM 2 GM in DEXTROSE 5%-WATER 100 ML IVPB SCH ×3 (01:09→17:22)
[2022-11-29] MEDS: oxyCODONE HCL 5 MG TABLET PO PRN ×4 (02:14→21:34)
[2022-11-29] MEDS: FUROSEMIDE 40 MG TABLET (FP) PO SCH ×2 (06:21→14:26)
[2022-11-29] MEDS: PANTOPRAZOLE 40 MG TABLET PO SCH (09:27)
[2022-11-29] MEDS: DOXYCYCLINE HYCLATE 100 MG CAPSULE PO SCH ×2 (09:27→17:22)
[2022-11-29] MEDS: CARVEDILOL 6.25 MG TABLET (FP) PO SCH ×2 (09:27→21:33)
[2022-11-29] MEDS: APIXABAN 5 MG TABLET PO SCH ×2 (10:57→21:35)
[2022-11-29 11:42] LABS: BASO % 0.8 % (0-2.0); EOS % 3.9 % (0-4.5); HEMATOCRIT 28.4 % (35.4-49); HEMOGLOBIN 9.6 GM/dL (11.7-16.9); LYMPH % 18.3 % (8-40); MCH 32.4 pg (25.7-33.7); MCHC 33.8 g/dl (32.0-35.9); MEAN CELL VOLUME 95.8 fl (80-96); MEAN PLT VOLUME 7.1 fl (7.5-11.1); MONO % 11.6 % (3.8-10.2); NEUT % 65.4 % (42.8-82.8); PLATELET COUNT 233 10^3/uL (134-434); RBC 2.96 M/mm3 (4.00-5.60); RDW 14.6 % (11.9-15.9)
[2022-11-29 12:52] LABS: POTASSIUM 3.8 mmol/L (3.5-5.1)
[2022-11-29 12:57] LABS: ALBUMIN 2.7 g/dl (3.4-5.0); BLOOD UREA NITROGEN 10.9 mg/dL (7-18); CALCIUM 8.2 mg/dL (8.5-10.1)
[2022-11-29 12:59] LABS: CREATININE 0.6 mg/dL (0.55-1.3)
[2022-11-29 13:02] LABS: BILIRUBIN,TOTAL 0.9 mg/dL (0.2-1); TOT PROT 6.1 g/dl (6.4-8.2)
[2022-11-29] MEDS: rOPINIRole HCL 1 MG TABLET (FP) PO SCH (21:33)
[2022-11-29] MEDS: ATORVASTATIN CA 20 MG TABLET (FP) PO SCH (21:33)
[2022-11-30] MEDS: CEFAZOLIN SODIUM 2 GM in DEXTROSE 5%-WATER 100 ML IVPB SCH ×3 (01:08→17:52)
[2022-11-30] MEDS: FUROSEMIDE 40 MG TABLET (FP) PO SCH ×2 (06:31→15:15)
[2022-11-30 06:59] VITALS: RESP 18
[2022-11-30 10:17] LABS: BASO % 0.6 % (0-2.0); EOS % 3.7 % (0-4.5); HEMATOCRIT 30.3 % (35.4-49); HEMOGLOBIN 10.6 GM/dL (11.7-16.9); MCH 32.9 pg (25.7-33.7); MCHC 34.9 g/dl (32.0-35.9); MEAN CELL VOLUME 94.2 fl (80-96); MEAN PLT VOLUME 6.3 fl (7.5-11.1); MONO % 9.5 % (3.8-10.2); NEUT % 66.2 % (42.8-82.8); PLATELET COUNT 245 10^3/uL (134-434); RBC 3.22 M/mm3 (4.00-5.60); RDW 15.4 % (11.9-15.9); WHITE BLOOD COUNT 4.1 K/mm3 (4.0-10.0)
[2022-11-30] MEDS: APIXABAN 5 MG TABLET PO SCH ×2 (10:36→21:29)
[2022-11-30] MEDS: CARVEDILOL 6.25 MG TABLET (FP) PO SCH ×2 (10:36→21:29)
[2022-11-30] MEDS: PANTOPRAZOLE 40 MG TABLET PO SCH (10:36)
[2022-11-30] MEDS: DOXYCYCLINE HYCLATE 100 MG CAPSULE PO SCH ×2 (10:36→17:51)
[2022-11-30 11:03] LABS: ALBUMIN 2.9 g/dl (3.4-5.0); CALCIUM 8.6 mg/dL (8.5-10.1)
[2022-11-30 11:05] LABS: BLOOD UREA NITROGEN 9.7 mg/dL (7-18); CREATININE 0.7 mg/dL (0.55-1.3)
[2022-11-30 11:07] LABS: BILIRUBIN,TOTAL 1.3 mg/dL (0.2-1); TOT PROT 6.6 g/dl (6.4-8.2)
[2022-11-30] MEDS: ALBUTEROL SO4 0.083% IH SOL 2.5 MG/3 ML VIAL.NEB. NEB SCH ×2 (14:50→20:18)
[2022-11-30] MEDS: oxyCODONE HCL 5 MG TABLET PO PRN (15:22)
[2022-11-30] MEDS: ACETAMINOPHEN 325 MG TABLET (FP) PO PRN (18:17)
[2022-11-30] MEDS: rOPINIRole HCL 1 MG TABLET (FP) PO SCH (21:29)
[2022-11-30] MEDS: ATORVASTATIN CA 20 MG TABLET (FP) PO SCH (21:29)
[2022-12-01] MEDS: CEFAZOLIN SODIUM 2 GM in DEXTROSE 5%-WATER 100 ML IVPB SCH ×3 (02:10→17:14)
[2022-12-01] MEDS: FUROSEMIDE 40 MG TABLET (FP) PO SCH ×2 (05:35→14:01)
[2022-12-01] MEDS: ALBUTEROL SO4 0.083% IH SOL 2.5 MG/3 ML VIAL.NEB. NEB SCH ×3 (07:45→20:46)
[2022-12-01] MEDS: PANTOPRAZOLE 40 MG TABLET PO SCH (10:22)
[2022-12-01] MEDS: DOXYCYCLINE HYCLATE 100 MG CAPSULE PO SCH ×2 (10:22→17:37)
[2022-12-01] MEDS: APIXABAN 5 MG TABLET PO SCH ×2 (10:22→21:24)
[2022-12-01] MEDS: CARVEDILOL 6.25 MG TABLET (FP) PO SCH ×2 (10:22→21:24)
[2022-12-01] MEDS: oxyCODONE HCL 5 MG TABLET PO PRN (10:22)
[2022-12-01] MEDS: ACETAMINOPHEN 325 MG TABLET (FP) PO PRN (15:18)
[2022-12-01] MEDS ORDERED: CEFAZOLIN SODIUM 2 GM VIAL ONE (16:36)
[2022-12-01] MEDS: rOPINIRole HCL 1 MG TABLET (FP) PO SCH (21:24)
[2022-12-01] MEDS: ATORVASTATIN CA 20 MG TABLET (FP) PO SCH (21:24)
[2022-12-02] MEDS: CEFAZOLIN SODIUM 2 GM in DEXTROSE 5%-WATER 100 ML IVPB SCH ×2 (02:19→09:50)
[2022-12-02] MEDS: oxyCODONE HCL 5 MG TABLET PO PRN ×2 (04:29→16:10)
[2022-12-02] MEDS: FUROSEMIDE 40 MG TABLET (FP) PO SCH ×2 (05:38→14:11)
[2022-12-02] MEDS: ALBUTEROL SO4 0.083% IH SOL 2.5 MG/3 ML VIAL.NEB. NEB SCH ×2 (07:58→14:45)
[2022-12-02] MEDS: APIXABAN 5 MG TABLET PO SCH (09:50)
[2022-12-02] MEDS: CARVEDILOL 6.25 MG TABLET (FP) PO SCH (09:50)
[2022-12-02] MEDS: DOXYCYCLINE HYCLATE 100 MG CAPSULE PO SCH (09:50)
[2022-12-02] MEDS: PANTOPRAZOLE 40 MG TABLET PO SCH (09:50)
[2022-12-02 14:49] VITALS: BP 124/57; PULSE 83; TEMP 98.2
== END 2022-12-02 17:01 | disposition home or self-care (01) | DRG 560 ==
LOC: JER 03:19 → JERBED 05:42 → J5S 11:14
PROVIDERS: ADMIT Family Medicine; ATTEND Family Medicine
DX: T84.54XA Infection and inflammatory reaction due to internal left knee prosthesis, initial encounter (principal); I69.351 Hemiplegia and hemiparesis following cerebral infarction affecting right dominant side; L03.116 Cellulitis of left lower limb; J44.9 Chronic obstructive pulmonary disease, unspecified; Z79.01 Long term (current) use of anticoagulants; I69.320 Aphasia following cerebral infarction; D64.9 Anemia, unspecified; I48.0 Paroxysmal atrial fibrillation; K21.9 Gastro-esophageal reflux disease without esophagitis; I44.7 Left bundle-branch block, unspecified; F02.80 Dementia in other diseases classified elsewhere, unspecified severity, without behavioral disturbance, psychotic disturbance, mood disturbance, and anxiety; G20 Parkinson's disease; I25.10 Atherosclerotic heart disease of native coronary artery without angina pectoris; Y83.8 Other surgical procedures as the cause of abnormal reaction of the patient, or of later complication, without mention of misadventure at the time of the procedure
CPT/HCPCS: 36415; 71045-TC-FY; 73552-TC-LT-FY; 73562-TC-LT-FY; 73590-TC-LT-FY; 73610-TC-LT-FY; 73630-TC-LT; 80053; 82728; 82962; 83036; 83540; 83550; 85025; 85610; 85730; 86850; 86900; 86901; 87040; 93005; 93010; 94640; 97116-GP; 97162-GP; 99285-25; J3370

== ENCOUNTER 2023-09-03 04:29 | Inpatient (IN) | payer OTHER, BC ==
[2023-09-03 04:46] VITALS: BMI 36.2
[2023-09-03] MEDS: SODIUM CHLORIDE 0.9% 1000 ML INFUS.BAG IV STA (05:24)
[2023-09-03] MEDS ORDERED: ACETAMINOPHEN INJECTION 100 ML IVPB ONE ×2 (05:27→16:36)
[2023-09-03] MEDS: ACETAMINOPHEN 1000 MG/100 ML BAG IVPB ONE (05:32)
[2023-09-03 05:35] LABS: VENOUS BASE EXCESS 1.4 mmol/L (-2-2); VENOUS O2 SATURATION 98.8 % (70-80); VENOUS PCO2 35.3 mmHg (38-52); VENOUS PH 7.464 (7.310-7.410)
[2023-09-03 05:36] LABS: BASO % 0.6 % (0-2.0); EOS % 0.1 % (0-4.5); HEMATOCRIT 38.9 % (35.4-49); HEMOGLOBIN 13.3 GM/dL (11.7-16.9); LYMPH % 7.1 % (8-40); MCH 31.9 pg (25.7-33.7); MCHC 34.2 g/dl (32.0-35.9); MEAN CELL VOLUME 93.3 fl (80-96); MEAN PLT VOLUME 7.8 fl (7.5-11.1); MONO % 7.2 % (3.8-10.2); PLATELET COUNT 116 10^3/uL (134-434); RBC 4.16 M/mm3 (4.00-5.60); RDW 13.9 % (11.9-15.9); WHITE BLOOD COUNT 4.1 K/mm3 (4.0-10.0)
[2023-09-03 06:01] LABS: INR 1.95 (0.83-1.09); PROTHROMBIN TIME (PATIENT) 21.6 SEC (9.7-13.0)
[2023-09-03 06:04] LABS: ACTIVATED PTT 36.3 SECONDS (25.2-36.5)
[2023-09-03 06:22] LABS: ALBUMIN 3.6 g/dl (3.4-5.0); CALCIUM 8.5 mg/dL (8.5-10.1); CREATININE 1.1 mg/dL (0.55-1.3); POTASSIUM 3.7 mmol/L (3.5-5.1); TOT PROT 7.5 g/dl (6.4-8.2)
[2023-09-03] MEDS ORDERED: PIPERACILLIN/TAZOB 3.375 GM 3.375 GM/50 ML BAG IVPB ONE (08:39)
[2023-09-03] MEDS: PIPERACILLIN/TAZOB 3.375 GM 3.375 GM in DEXTROSE 5%-WATER - 50 ML IVPB ONE (09:01)
[2023-09-03 12:59] LABS: EPI CELLS 1 /uL (0-25.1); HYALINE CASTS 0 /uL (0-3.1); PH,URINE 5.5 (5.0-8.0); URINE APPEARANCE CLOUDY; URINE BACTERIA 1 /uL (0-1359); URINE BILIRUBIN NEGATIVE (NEGATIVE); URINE COLOR ORANGE; URINE GLUCOSE (UA) NEGATIVE (NEGATIVE); URINE KETONE NEGATIVE (NEGATIVE); URINE LEUK ESTERASE 1+ (NEGATIVE); URINE NITRITE NEGATIVE (NEGATIVE); URINE PROTEIN 2+ (NEGATIVE); URINE RBC 1 /uL (0-23.9); URINE WBC 0 /uL (0-25.8)
[2023-09-03] MEDS ORDERED: CEFTRIAXONE 1 GM/50 ML BAG ONE (13:48)
[2023-09-03] MEDS: CEFTRIAXONE 1,000 MG in DEXTROSE 5%-WATER - 50 ML IVPB ONE (13:55)
[2023-09-03] MEDS: SODIUM CHLORIDE 1,000 ML IV SCH (14:10)
[2023-09-03] MEDS: ACETAMINOPHEN 1000 MG/100 ML BAG IVPB PRN (16:44)
[2023-09-03] MEDS: rOPINIRole HCL 1 MG TABLET (FP) PO ONE (17:00)
[2023-09-04 09:58] LABS: HEMATOCRIT 34.1 % (35.4-49); HEMOGLOBIN 11.8 GM/dL (11.7-16.9); MCH 32.1 pg (25.7-33.7); MCHC 34.6 g/dl (32.0-35.9); MEAN CELL VOLUME 92.6 fl (80-96); PLATELET COUNT 115 10^3/uL (134-434); RBC 3.69 M/mm3 (4.00-5.60); RDW 14.4 % (11.9-15.9); WHITE BLOOD COUNT 3.4 K/mm3 (4.0-10.0)
[2023-09-04 10:33] LABS: ALK PHOS 96 U/L (45-117); ANION GAP 5 mmol/L (4-13); BILIRUBIN,TOTAL 1.4 mg/dL (0.2-1); BLOOD UREA NITROGEN 12.7 mg/dL (7-18); CHLORIDE 105 mmol/L (98-107); CO2 29 mmol/L (21-32); CREATININE 0.7 mg/dL (0.55-1.3); GLUCOSE,RANDOM 137 mg/dL (74-106); POTASSIUM 3.3 mmol/L (3.5-5.1); SGPT/ALT 209 U/L (13-61); SODIUM 139 mmol/L (136-145); TOT PROT 6.1 g/dl (6.4-8.2)
[2023-09-04 10:47] LABS: ANISOCYTOSIS 0; MACROCYTOSIS 0
[2023-09-04] MEDS: APIXABAN 5 MG TABLET PO SCH (10:49)
[2023-09-04] MEDS: CEFTRIAXONE 1 GM in DEXTROSE 5%-WATER - 50 ML IVPB SCH (10:49)
[2023-09-04 13:44] LABS: SGOT/AST 1064 U/L (15-37)
[2023-09-04 16:10] LABS: GAMMA GLUTAMYL TRANSPEPTIDASE 79 U/L (5-85)
[2023-09-04] MEDS: PANTOPRAZOLE 40 MG TABLET PO SCH (16:10)
[2023-09-04] MEDS: rOPINIRole HCL 1 MG TABLET (FP) PO SCH (16:10)
[2023-09-04 16:14] LABS: IRON SERUM 33 ug/dL (50-175); TOTAL IRON BINDING CAPACITY 208 ug/dL (250-450)
[2023-09-04] MEDS: ASPIRIN 81 MG CHEWABLE TABLETS PO ONE (16:23)
[2023-09-04 16:53] LABS: BILIRUBIN,DIRECT 0.6 mg/dL (0.0-0.2)
[2023-09-04] MEDS: ATORVASTATIN CA 40 MG TABLET (FP) PO SCH (22:14)
[2023-09-04] MEDS: CARVEDILOL 6.25 MG TABLET (FP) PO SCH (22:14)
[2023-09-05] MEDS ORDERED: ALBUTEROL SO4 2.5/IPRATROPIUM 0.5 INH SOL 3 ML VIAL.NEB. NEB ONE (00:08)
[2023-09-05] MEDS ORDERED: LEVALBUTEROL HCL 0.63 MG/3 ML VIAL.NEB. IH ONE ×2 (00:13→23:55)
[2023-09-05] MEDS: LEVALBUTEROL HCL 0.63 MG/3 ML VIAL.NEB. IH ONE (02:00)
[2023-09-05] MEDS: MELATONIN 5 MG TABLETS PO ONE (02:27)
[2023-09-05 07:41] LABS: BASO % 0.5 % (0-2.0); EOS % 2.1 % (0-4.5); HEMATOCRIT 32.6 % (35.4-49); HEMOGLOBIN 11.1 GM/dL (11.7-16.9); LYMPH % 25.6 % (8-40); MCH 31.7 pg (25.7-33.7); MCHC 34.1 g/dl (32.0-35.9); MEAN CELL VOLUME 93.1 fl (80-96); MONO % 16.4 % (3.8-10.2); NEUT % 55.4 % (42.8-82.8); PLATELET COUNT 125 10^3/uL (134-434); RDW 13.8 % (11.9-15.9); WHITE BLOOD COUNT 3.5 K/mm3 (4.0-10.0)
[2023-09-05 07:54] LABS: POTASSIUM 3.1 mmol/L (3.5-5.1)
[2023-09-05 07:58] LABS: BLOOD UREA NITROGEN 9.1 mg/dL (7-18)
[2023-09-05 08:02] LABS: CREATININE 0.7 mg/dL (0.55-1.3)
[2023-09-05 08:03] LABS: BILIRUBIN,TOTAL 1.2 mg/dL (0.2-1); TOT PROT 5.8 g/dl (6.4-8.2)
[2023-09-05 08:04] LABS: ALBUMIN 2.7 g/dl (3.4-5.0)
[2023-09-05] MEDS: ASPIRIN COATED 81 MG TABLET.EC PO SCH (11:35)
[2023-09-05] MEDS: CEFTRIAXONE 2 GM in DEXTROSE 5%-WATER 100 ML IVPB SCH (11:37)
[2023-09-05] MEDS: KCL 10 MEQ IVPB 10 MEQ/100 ML INFUS.BAG IVPB SCH (14:02)
[2023-09-05] MEDS: POTASSIUM CHLORIDE ORAL LIQUID 20 MEQ/15 ML PO ONE (14:02)
[2023-09-05] MEDS: SODIUM CHLORIDE 1,000 ML IV SCH (14:03)
[2023-09-06 10:46] LABS: BASO % 0.6 % (0-2.0); EOS % 2.8 % (0-4.5); HEMATOCRIT 31.9 % (35.4-49); HEMOGLOBIN 10.8 GM/dL (11.7-16.9); LYMPH % 25.6 % (8-40); MCH 31.6 pg (25.7-33.7); MCHC 33.9 g/dl (32.0-35.9); MEAN PLT VOLUME 7.6 fl (7.5-11.1); MONO % 14.6 % (3.8-10.2); NEUT % 56.4 % (42.8-82.8); PLATELET COUNT 150 10^3/uL (134-434); RBC 3.43 M/mm3 (4.00-5.60); RDW 13.9 % (11.9-15.9); WHITE BLOOD COUNT 3.1 K/mm3 (4.0-10.0)
[2023-09-06 11:24] LABS: ALK PHOS 108 U/L (45-117); BILIRUBIN,TOTAL 0.8 mg/dL (0.2-1); BLOOD UREA NITROGEN 7.3 mg/dL (7-18); CHLORIDE 106 mmol/L (98-107); CO2 29 mmol/L (21-32); CREATININE 0.6 mg/dL (0.55-1.3); GLUCOSE,RANDOM 185 mg/dL (74-106); POTASSIUM 3.3 mmol/L (3.5-5.1); SGOT/AST 743 U/L (15-37); SGPT/ALT 203 U/L (13-61); SODIUM 141 mmol/L (136-145); TOT PROT 6.1 g/dl (6.4-8.2)
[2023-09-06 12:30] LABS: ALBUMIN 2.7 g/dl (3.4-5.0)
[2023-09-07] MEDS: POTASSIUM CHLORIDE ORAL LIQUID 20 MEQ/15 ML PO ONE (10:58)
[2023-09-07 14:23] LABS: POTASSIUM 3.4 mmol/L (3.5-5.1)
[2023-09-07 14:25] LABS: ALBUMIN 2.9 g/dl (3.4-5.0); CALCIUM 8.3 mg/dL (8.5-10.1)
[2023-09-07 14:26] LABS: BLOOD UREA NITROGEN 8.3 mg/dL (7-18)
[2023-09-07 14:29] LABS: BILIRUBIN,TOTAL 0.8 mg/dL (0.2-1); CREATININE 0.6 mg/dL (0.55-1.3); TOT PROT 6.3 g/dl (6.4-8.2)
[2023-09-08] MEDS: rOPINIRole HCL 1 MG TABLET (FP) PO SCH ×2 (05:25→22:33)
[2023-09-08 10:01] LABS: POTASSIUM 3.7 mmol/L (3.5-5.1)
[2023-09-08 10:03] LABS: ALBUMIN 2.4 g/dl (3.4-5.0); BLOOD UREA NITROGEN 8.4 mg/dL (7-18)
[2023-09-08 10:07] LABS: CREATININE 0.5 mg/dL (0.55-1.3)
[2023-09-08 10:09] LABS: TOT PROT 5.4 g/dl (6.4-8.2)
[2023-09-08] MEDS: POTASSIUM CHLORIDE ORAL LIQUID 20 MEQ/15 ML PO ONE (12:05)
[2023-09-08] MEDS: FUROSEMIDE 40 MG TABLET (FP) PO ONE (12:06)
[2023-09-08] MEDS: SODIUM CHLORIDE 1,000 ML IV SCH (12:13)
[2023-09-08 12:19] VITALS: RESP 18
[2023-09-08] MEDS ORDERED: ACETAMINOPHEN 1000 MG/100 ML BAG IVPB PRN (14:05)
[2023-09-08] MEDS ORDERED: rOPINIRole HCL 1 MG TABLET (FP) PO SCH ×2 (22:00)
[2023-09-08] MEDS ORDERED: rOPINIRole HCL 2 MG TABLET (FP) PO SCH (22:00)
[2023-09-08] MEDS: CARVEDILOL 6.25 MG TABLET (FP) PO SCH (22:33)
[2023-09-08] MEDS: APIXABAN 5 MG TABLET PO SCH (22:33)
[2023-09-09 09:28] LABS: BASO % 0.6 % (0-2.0); HEMATOCRIT 32.7 % (35.4-49); HEMOGLOBIN 11.3 GM/dL (11.7-16.9); MCH 32.1 pg (25.7-33.7); MCHC 34.6 g/dl (32.0-35.9); MEAN CELL VOLUME 92.8 fl (80-96); MEAN PLT VOLUME 7.2 fl (7.5-11.1); NEUT % 65.4 % (42.8-82.8); PLATELET COUNT 236 10^3/uL (134-434); RBC 3.52 M/mm3 (4.00-5.60); RDW 14.3 % (11.9-15.9); WHITE BLOOD COUNT 4.5 K/mm3 (4.0-10.0)
[2023-09-09 09:41] LABS: POTASSIUM 3.7 mmol/L (3.5-5.1)
[2023-09-09] MEDS: FUROSEMIDE 20 MG TABLET (FP) PO SCH (09:42)
[2023-09-09] MEDS: PANTOPRAZOLE 40 MG TABLET PO SCH (09:42)
[2023-09-09] MEDS: ASPIRIN COATED 81 MG TABLET.EC PO SCH (09:42)
[2023-09-09] MEDS: POTASSIUM CHLORIDE ORAL LIQUID 20 MEQ/15 ML PO SCH (09:43)
[2023-09-09] MEDS: CEFTRIAXONE 2 GM in DEXTROSE 5%-WATER 100 ML IVPB SCH (09:43)
[2023-09-09 10:03] LABS: ALBUMIN 2.7 g/dl (3.4-5.0); CALCIUM 8.3 mg/dL (8.5-10.1); MAGNESIUM 1.9 mg/dL (1.8-2.4)
[2023-09-09 10:07] LABS: CREATININE 0.5 mg/dL (0.55-1.3)
[2023-09-09 10:08] LABS: TOT PROT 5.9 g/dl (6.4-8.2)
[2023-09-09 10:09] LABS: BILIRUBIN,TOTAL 1.4 mg/dL (0.2-1)
[2023-09-10] MEDS: MELATONIN 5 MG TABLETS PO ONE (21:42)
[2023-09-11] MEDS ORDERED: BENZOCAINE/MENTHOL 1 EACH LOZENGE MM PRN (10:55)
[2023-09-11] MEDS: FUROSEMIDE 40 MG/4 ML INJECTABLE VIAL IVPUSH ONE (11:20)
[2023-09-11] MEDS: FUROSEMIDE 40 MG TABLET (FP) PO SCH (12:16)
[2023-09-11 12:24] LABS: POTASSIUM 3.5 mmol/L (3.5-5.1)
[2023-09-11 12:26] LABS: BLOOD UREA NITROGEN 10.3 mg/dL (7-18); CALCIUM 8.7 mg/dL (8.5-10.1)
[2023-09-11 12:30] LABS: CREATININE 0.6 mg/dL (0.55-1.3)
[2023-09-11 12:31] LABS: BILIRUBIN,TOTAL 1.1 mg/dL (0.2-1); TOT PROT 6.5 g/dl (6.4-8.2)
[2023-09-11] MEDS: POTASSIUM CHLORIDE ORAL LIQUID 20 MEQ/15 ML PO ONE (14:54)
[2023-09-11] MEDS: DOXYCYCLINE HYCLATE 100 MG CAPSULE PO SCH (20:52)
[2023-09-12 14:35] VITALS: BP 103/58; PULSE 66; TEMP 98.8
[2023-09-12] MEDS ORDERED: FUROSEMIDE 40 MG TABLET (FP) PO SCH (22:00)
== END 2023-09-12 14:33 | DRG 871 ==
LOC: JER 04:29 → JERBED 13:45 → J4S 23:45 → J5S 09-08 13:46
PROVIDERS: ADMIT Family Medicine; ATTEND Family Medicine
DX: A41.9 Sepsis, unspecified organism (principal); I63.9 Cerebral infarction, unspecified; M62.82 Rhabdomyolysis; J44.1 Chronic obstructive pulmonary disease with (acute) exacerbation; I69.351 Hemiplegia and hemiparesis following cerebral infarction affecting right dominant side; M25.061 Hemarthrosis, right knee; A69.20 Lyme disease, unspecified; J44.9 Chronic obstructive pulmonary disease, unspecified; G20.A1 Parkinson's disease without dyskinesia, without mention of fluctuations; I10 Essential (primary) hypertension; I48.91 Unspecified atrial fibrillation; D69.6 Thrombocytopenia, unspecified; I69.320 Aphasia following cerebral infarction; E78.5 Hyperlipidemia, unspecified; E87.6 Hypokalemia; K74.60 Unspecified cirrhosis of liver; E80.6 Other disorders of bilirubin metabolism; K80.20 Calculus of gallbladder without cholecystitis without obstruction; M25.461 Effusion, right knee; E83.119 Hemochromatosis, unspecified; I25.10 Atherosclerotic heart disease of native coronary artery without angina pectoris; Z68.36 Body mass index [BMI] 36.0-36.9, adult; R74.01 Elevation of levels of liver transaminase levels; E66.9 Obesity, unspecified; Z68.38 Body mass index [BMI] 38.0-38.9, adult; K21.9 Gastro-esophageal reflux disease without esophagitis
CPT/HCPCS: 0241U-QW; 36415; 70450-TC; 71045-TC-FY; 72125-TC; 72170-TC-FY; 73560-TC-RT-FY; 73562-TC-RT-FY; 74178-TC; 76705-TC; 76870-TC; 80053; 80061; 81003; 82140; 82248; 82550; 82553; 82728; 82803; 82930; 82962; 82977; 83010; 83540; 83550; 83605; 83615; 83735; 84484; 85025; 85610; 85730; 86618; 86704; 86708; 86803; 86850; 86900; 86901; 87040; 87086; 87340; 87517; 87798; 93005; 93010; 93306-TC; 93880-TC; 97116-GP; 97161-GP; 99285-25; J0131; Q9967

== ENCOUNTER 2023-12-18 16:15 | Emergency (ER) | payer OTHER, BC ==
[2023-12-18 16:58] VITALS: BP 122/50; PULSE 87; RESP 20; TEMP 100.6; BMI 35.4
[2023-12-18] MEDS ORDERED: ACETAMINOPHEN 325 MG TABLET (FP) ONE (17:35)
[2023-12-18] MEDS: ACETAMINOPHEN 325 MG TABLET (FP) PO ONE (17:39)
[2023-12-18 17:48] LABS: HEMATOCRIT 42.3 % (35.4-49); HEMOGLOBIN 13.5 G/dL (11.7-16.9); MCH 31.7 pg (25.7-33.7); MCHC 31.9 g/dl (32.0-35.9); MEAN CELL VOLUME 99.2 fl (80-96); MEAN PLT VOLUME 7.7 fl (7.5-11.1); PLATELET COUNT 154.7 10^3/uL (134-434); RBC 4.26 10^6/uL (4.00-5.60); RDW 14.5 % (11.9-15.9); WHITE BLOOD COUNT 6.5 10^3/uL (4.0-10.8)
[2023-12-18 18:04] LABS: ALBUMIN 4.4 g/dl (3.4-5.0); BILIRUBIN,TOTAL 0.9 mg/dl (0.2-1); CALCIUM 9.2 mg/dl (8.5-10.1); CREATININE 0.8 mg/dl (0.6-1.3); POTASSIUM 3.8 mmol/L (3.5-5.1); TOT PROT 7.5 g/dl (6.4-8.2)
[2023-12-18 18:10] LABS: PLATELET ESTIMATE ADEQUATE
[2023-12-18] MEDS ORDERED: CEPHALEXIN MONOHYDRATE 500 MG CAPSULE (UD) ONE (18:59)
[2023-12-18] MEDS: CEPHALEXIN MONOHYDRATE 500 MG CAPSULE (UD) PO ONE (19:02)
== END 2023-12-18 19:07 | disposition home or self-care (01) ==
LOC: FER 16:15
DX: R50.9 Fever, unspecified (principal); R05.9 Cough, unspecified; R09.81 Nasal congestion; U07.1 COVID-19
CPT/HCPCS: 0241U-QW; 36415; 71046-TC-FY; 80053; 81003; 81015; 85027; 99284-25

== ENCOUNTER 2024-01-23 04:59 | Day surgery (SDC) | payer OTHER, BC ==
[2024-01-11 15:58] VITALS: BMI 36.1
[2024-01-23] MEDS ORDERED: ETOMIDATE 20 MG/10 ML VIAL IVPUSH ONE (09:32)
[2024-01-23] MEDS ORDERED: LIDOCAINE VISCOUS 2% ORAL/TOP 15 ML UNIT-DOSE CUP ONE (09:32)
[2024-01-23] MEDS ORDERED: MIDAZOLAM HCL 2 MG/2 ML SINGLE DOSE VIAL ONE ×2 (09:32→09:34)
[2024-01-23 10:36] VITALS: RESP 14; TEMP 98
[2024-01-23 11:32] VITALS: PULSE 64
[2024-01-23 11:33] VITALS: BP 144/59
== END 2024-01-23 11:39 | disposition home or self-care (01) ==
LOC: JASU-ENDO 04:59
PROVIDERS: ATTEND Internal Medicine Gastroenterology
PROC: 0DBN8ZX Excision of Sigmoid Colon, Via Natural or Artificial Opening Endoscopic, Diagnostic (ICD-10-PCS; 2024-01-23)
PROC: 0DB98ZX Excision of Duodenum, Via Natural or Artificial Opening Endoscopic, Diagnostic (ICD-10-PCS; 2024-01-23)
PROC: 0DB78ZX Excision of Stomach, Pylorus, Via Natural or Artificial Opening Endoscopic, Diagnostic (ICD-10-PCS; 2024-01-23)
PROC: 0DB68ZX Excision of Stomach, Via Natural or Artificial Opening Endoscopic, Diagnostic (ICD-10-PCS; 2024-01-23)
PROC: 0DB48ZX Excision of Esophagogastric Junction, Via Natural or Artificial Opening Endoscopic, Diagnostic (ICD-10-PCS; 2024-01-23)
PROC: 0DBP8ZX Excision of Rectum, Via Natural or Artificial Opening Endoscopic, Diagnostic (ICD-10-PCS; principal; 2024-01-23 10:00)
DX: Z12.11 Encounter for screening for malignant neoplasm of colon (principal); D12.5 Benign neoplasm of sigmoid colon; D12.8 Benign neoplasm of rectum; K57.30 Diverticulosis of large intestine without perforation or abscess without bleeding; Z86.0100 Personal history of colon polyps, unspecified; K22.70 Barrett's esophagus without dysplasia; K29.50 Unspecified chronic gastritis without bleeding; K31.7 Polyp of stomach and duodenum; K21.00 Gastro-esophageal reflux disease with esophagitis, without bleeding
CPT/HCPCS: 88305-TC; 88342-TC